=== PATIENT | male | born 1940 | race Caucasian/White ===

== ENCOUNTER 2022-07-18 01:04 | Inpatient (IN) ==
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
[2022-07-18 02:08] LABS: Albumin Level 3.9 gm/dl (3.4-5.0); BUN Creatinine Ratio 19.1 (10-20); Bilirubin Direct 0.2 mg/dl (0-0.2); Bilirubin,Total 0.9 mg/dl (0.2-1.0); Calcium 9.4 mg/dl (8.6-10.3); Creatinine Clr Calc Pharmacy 44.6 ml/min; Est GFR (African American) 48.8 ml/min; Est GFR (Non-African American) 42.1 ml/min; Hematocrit (blood only) 40.6 % (42.0-52.0); Hemoglobin 13.5 g/dl (14.0-18.0); Magnesium 1.5 mg/dl (1.7-2.4); Mean Corpuscular Hemoglobin 30.3 pg (25.0-34.0); Mean Corpuscular Hgb Conc 33.3 g/dL (32.0-36.0); Mean Corpuscular Volume 91.2 fL (80.0-100.0); Mean Platelet Volume 9.4 fL (9.4-12.4); Platelet Count 148 K/uL (130-400); Potassium 4.5 mmol/L (3.5-5.1); RDW Coefficient of Variation 13.3 % (11.5-14.5); RDW Standard Deviation 44.5 fL (36.4-46.3); Red Blood Count 4.45 M/uL (4.70-6.10); White Blood Count 3.44 K/ul (4.8-10.8)
[2022-07-18] MEDS ORDERED: ACETAMINOPHEN 500 MG TAB PO STA (02:09)
[2022-07-18] MEDS ORDERED: SODIUM CHLORIDE 0.9% 1000ML 1,000 ML IV ONE ×4 (02:48→19:31)
[2022-07-18] MEDS ORDERED: PIPERACILLIN/TAZOBACTAM 4.5 GM/120 ML BAG IV ONE (02:48)
[2022-07-18 02:50] LABS: Basophils # (auto) 0.01 K/uL (0-0.2); Basophils % (auto) 0.3 %; Immature Granulocytes # (auto) 0.03 K/uL (0.01-0.20); Immature Granulocytes % (auto) 0.9 %; Lymphocytes # (auto) 0.56 K/uL (1.2-3.4); Lymphocytes % (auto) 16.3 %; Monocytes # (auto) 0.01 K/uL (0.11-0.59); Monocytes % (auto) 0.3 %; Neutrophils # (auto) 2.83 K/uL (1.40-6.50); Neutrophils % (auto) 82.2 %
[2022-07-18 02:53] LABS: Appearance Urine Cloudy (Clear); Bacteria Urine Automated 4+ (Negative); Bilirubin Urine Negative (Negative); Blood Urine 3+ (Negative); Color Urine Yellow; Epithelial Cell Urine Auto 0-5 /lpf (0-5); Glucose Urine UA Negative (Negative); Ketones Urine Negative (Negative); Leukocyte Esterase Urine 2+ (Negative); Nitrite Urine Positive (Negative); Protein Urine Negative (Negative); Specific Gravity Urine 1.013 (1.000-1.030); Urobilinogen Urine Negative (Negative); WBC Urine Automated >30 /hpf (0-5); pH Urine 5.5 (4.5-7.5)
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
[2022-07-18 03:50] LABS: Partial Thromboplastin Ratio 0.8; Partial Thromboplastin Time 21.9 Seconds (21.0-31.0)
[2022-07-18] MEDS ORDERED: LACTATED RINGER'S 1,000 ML IV ONE (04:30)
[2022-07-18] MEDS ORDERED: GLUCOSE 40% GEL 15 GM TUBE PO PRN (05:01)
[2022-07-18] MEDS ORDERED: GLUCOSE 10 TAB/TUBE PO PRN (05:01)
[2022-07-18] MEDS ORDERED: GLUCAGON FOR INJ 1 MG VIAL SQ PRN (05:01)
[2022-07-18] MEDS ORDERED: INSULIN ASPART PER UNIT CHARGE SC SCH (05:01)
[2022-07-18] MEDS ORDERED: traMADol HCL 50 MG TABLET PO PRN (05:01)
[2022-07-18] MEDS ORDERED: PROMETHAZINE HCL 12.5 MG in SODIUM CHLORIDE 0.9% 50 ML IV PRN (05:01)
[2022-07-18] MEDS ORDERED: DEXTROSE 50% 50 ML SYRINGE IV PRN (05:01)
[2022-07-18] MEDS ORDERED: CARBOHYDRATES FOR HYPOGLYCEMIA PO PRN (05:01)
[2022-07-18] MEDS: MAGNESIUM SULFATE / D5W 1 GM/100 ML BAG IV SCH ×3 (05:09→22:31)
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
--- NOTE | 2022-07-18 06:45 | CT Scan Report ---
Exam(s): CT ABDOMEN + PELVIS Without Contrast EXAM: CT Abdomen and Pelvis Without Intravenous Contrast CLINICAL HISTORY: Hematuria. TECHNIQUE: Axial computed tomography images of the abdomen and pelvis without intravenous contrast. CTDI is 21.66 mGy and DLP is 1269.14 mGy-cm. Automated exposure control was utilized for the study. A dose lowering technique was utilized adhering to the principles of ALARA. COMPARISON: CT abdomen and pelvis 06/12/2022 FINDINGS: Lung bases: Unremarkable. No mass. No consolidation. ABDOMEN: Liver: Unremarkable. Gallbladder and bile ducts: Unremarkable. No calcified stones. No ductal dilation. Pancreas: Calcifications of the pancreas are most consistent with chronic pancreatitis. No ductal dilation. Spleen: Unremarkable. No splenomegaly. Adrenals: Unremarkable. No mass. Kidneys and ureters: Unremarkable. No hydronephrosis or visualized nephrolithiasis. Stomach and bowel: Unremarkable. No obstruction. No mucosal thickening. PELVIS: Appendix: Normal appendix. Bladder: There is marked thickening of the wall of the urinary bladder with inflammatory stranding surrounding. A Head catheter is in good position. No stones. Reproductive: Unremarkable as visualized. ABDOMEN and PELVIS: Intraperitoneal space: Unremarkable. No free air. No significant fluid collection. Bones/joints: There are degenerative changes of the spine. No fracture. There is internal fixation of the right femur. No dislocation. Soft tissues: Small right and moderate left fat-containing inguinal hernias. There is a moderate umbilical fat-containing hernia. Vasculature: Minimal atherosclerosis. No abdominal aortic aneurysm. Lymph nodes: Unremarkable. No enlarged lymph nodes. IMPRESSION: 1. There is marked thickening of the wall of the urinary bladder with inflammatory stranding surrounding. This is concerning for cystitis. 2. No hydronephrosis or visualized nephrolithiasis. 3. Calcifications of the pancreas are most consistent with chronic pancreatitis. Electronically signed by: Gail Simpson MD 07/18/22 06:44 AM
--- NOTE | 2022-07-18 07:20 | XRay Report ---
SINGLE VIEW CHEST CLINICAL HISTORY: Sepsis. FINDINGS: An AP, portable, upright chest radiograph is obtained. No prior studies are available for c omparison at the time of dictation. The heart is enlarged noting atherosclerotic calcification of the thoracic aorta. The pulmonary vasculature is noncongested. There is bibasilar scarring/atelectasis. No airspace consolidation or large pleural effusion is identified. No pneumothorax is seen. The skele kody structures are osteopenic. The bony thorax is grossly intact. IMPRESSION: Moderate cardiomegaly with no active disease in the chest. ACT 112: Negative or not required by law. Electronically signed by: Natalio Mcnamara M.D. 07/18/2022 7:18 AM
[2022-07-18 07:36] LABS: Estimated Average Glucose 166 mg/dl; Hemoglobin A1C 7.4 % (4.5-5.6)
[2022-07-18] MEDS: CEFEPIME 2,000 MG in SYRINGE 0 ML IV SCH ×2 (07:53→20:07)
--- NOTE | 2022-07-18 07:58 | Urology Progress Note ---
I have discussed Mr. Dodd's case with CONNIE Thomas and agree with the above documentation. Urinalysis suspicious for infection with final blood cultures pending. Suspicion for sepsis from urologic source. He is also having new oxygen requirement undergoing work-up for PE. Agree with continuing antibiotics and narrowing coverage as culture data becomes available. Apprec iate hospitalist and ICU care. Urology will follow along. -Miguel Mcduffie MD. Date of Service July 18, 2022 Assessment & Plan (1) Acute UTI (urinary tract infection): (2) Urinary retention: (3) Urothelial carcinoma of bladder: Plan 81yo/M with a hx of bladder cancer who recently underwent TURBT on 07/08/[address] Mcduffie admitted with sepsis/UTI. -CT abd/pelvis noted cystitis, no hydronephrosis, and chronic pancreatitis. -Afebrile, hypotensive, not tachycardic. -Labs reviewed -White count 3.44, creatinine 1.52, hemoglobin 11.1. Continue to trend. -Urine and blood cultures are pending. On IV cefepime. -Follow cultures and tailor as culture data becomes available. -Maintain Head catheter. -Continue supportive care, antibiotic therapy, and management per primary team. -Urology will follow. Admission and Anticipated Discharge Date Admission Date: July 18, 2022 Subjective Patient examined at bedside. Awake, resting in bed on arrival. Reported feeling a little shaky. Nursing at bedside to check BP/BS. States he feels better than he did when he came in. Head catheter intact, draining clear yellow urine. Denies any pain or discomfort at present. No fevers. Denies nausea or vomiting. Pt to have CT chest today to r/o PE. Review of Systems Constitutional: as per Subjective / HPI Gastrointestinal: as per Subjective / HPI Genitourinary: + as per Subjective / HPI Physical Exam Constitutional: no acute distress Respiratory: no respiratory distress and no labored breathing Neurologic: moves all extremities and awake Psychiatric: Orientation: alert and oriented x 3 Genitourinary: Head catheter intact Results & Data Vital Signs (Past 12 Hours) Vital Signs Temp Pulse Pulse Resp BP BP BP 07/18/22 07:11 36.9 C 88 19 86/53 L 07/18/22 05:49 95 H 07/18/22 05:41 92/56 L 07/18/22 05:35 07/18/22 05:18 37.8 C H 94 H 18 78/46 L 07/18/22 05:01 36.9 C 93 H 24 91/56 L 07/18/22 04:15 99 H 28 H 96/56 L 07/18/22 04:04 101 H 23 86/49 L 07/18/22 03:30 108 H 20 93/61 L 07/18/22 03:13 109 H 32 H 112/65 07/18/22 02:39 07/18/22 02:38 109 H 28 H 110/51 L 07/18/22 02:00 107 H 31 H 07/18/22 01:13 37.5 C 107 H 20 130/72 07/18/22 01:11 106 H Pulse Ox O2 Del Method 07/18/22 07:11 93 Room Air 07/18/22 05:49 07/18/22 05:41 07/18/22 05:35 Room Air 07/18/22 05:18 96 Room Air 07/18/22 05:01 91 Room Air 07/18/22 04:15 93 Nasal Cannula 07/18/22 04:04 92 07/18/22 03:30 07/18/22 03:13 94 Room Air 07/18/22 02:39 94 Room Air 07/18/22 02:38 95 Room Air 07/18/22 02:00 07/18/22 01:13 93 Room Air 07/18/22 01:11 PG Care Time/CCT Total # of Minutes Spent Total Time Spent with Patient: Total time spent is greater than 50% in coordination of care (as documented) at patient's floor/unit and/or counseling patient: Coding Level of Care Code 49355 SUB INP/OBS CARE 2MIN Diagnoses Acute UTI (urinary tract infection) N39.0 Urinary retention R33.9 Urothelial carcinoma of bladder C67.9
[2022-07-18 08:05] LABS: Hematocrit (blood only) 34.9 % (42.0-52.0); Hemoglobin 11.3 g/dl (14.0-18.0)
[2022-07-18] MEDS: INSULIN ASPART PER UNIT CHARGE SC SCH ×4 (08:35→21:14)
[2022-07-18] MEDS: ACETAMINOPHEN 325 MG TAB PO PRN (09:43)
--- NOTE | 2022-07-18 10:17 | Electrocardiogram Report ---
Test Reason : Blood Pressure : / mmHG Vent. Rate : 104 BPM Atrial Rate : 104 BPM P-R Int : 166 ms QRS Dur : 082 ms QT Int : 304 ms P-R-T Axes : 023 045 044 degrees QTc Int : 399 ms Sinus tachycardia Otherwise normal ECG When compared with ECG of 27-APR-1997 10:08, Nonspecific T wave abnormality, worse in Inferior leads Nonspecific T wave abnormality now evident in Anterior leads Confirmed by Tree Meehan ([id number]) on 07/18/2022 10:17:11 AM Referred By: REFERRED SELF Confirmed By:Manav Meehan
[2022-07-18 11:52] LABS: A calco-baum cmplx NotReported Not Detected (NotDetected); Bact fragilis Not Reported Not Detected (NotDetected); C auris Not Reported Not Detected (NotDetected); CTX-M Resistant Gene Not Detected (NotDetected); Calbicans Not Reported Not Detected (NotDetected); Candida glabrata Not Reported Not Detected (NotDetected); Candida krusei Not Reported Not Detected (NotDetected); Cneoformans/gatti Not Reported Not Detected (NotDetected); Cparapsilosis Not Reported Not Detected (NotDetected); Ctropicalis Not Reported Not Detected (NotDetected); E cloacae compx Not Reported Not Detected (NotDetected); Efaecalis Not Reported Not Detected (NotDetected); Efaecium Not Reported Not Detected (NotDetected); Enterobacterales Not Reported DETECTED (NotDetected); Escherichia coli Not Reported Not Detected (NotDetected); H influenzae Not Reported Not Detected (NotDetected); IMP Resistant Gene Not Detected (NotDetected); K aerogenes Not Reported Not Detected (NotDetected); KPC Resistant Gene Not Detected (NotDetected); Koxytoca Not Reported Not Detected (NotDetected); Kpneumoniae grp Not Reported Not Detected (NotDetected); Lmonocyt Not Reported Not Detected (NotDetected); N meningitidis Not Reported Not Detected (NotDetected); NDM Resistant Gene Not Detected (NotDetected); OXA 48 Like Resistant Gene Not Detected (NotDetected); P aeruginosa Not Reported Not Detected (NotDetected); Proteus spp Not Reported Not Detected (NotDetected); Salmonella spp Not Reported Not Detected (NotDetected); Serratia marcescens DETECTED (NotDetected); Smarcescens Not Reported DETECTED (NotDetected); Staph lugdunensis Not Reported Not Detected (NotDetected); Staph spp. Not Reported Not Detected (NotDetected); Staphaureus Not Reported Not Detected (NotDetected); Staphepi Not Reported Not Detected (NotDetected); Stenmaltophilia Not Reported Not Detected (NotDetected); Strep agal(GrpB) Not Reported Not Detected (NotDetected); Strep pneum Not Reported Not Detected (NotDetected); Strep pyog (GrpA) Not Reported Not Detected (NotDetected); Strep spp Not Reported Not Detected (NotDetected); VIM Resistant Gene Not Detected (NotDetected)
[2022-07-18 11:58] LABS: Enterobacterales DETECTED (NotDetected)
--- NOTE | 2022-07-18 13:23 | Communication Note ---
Date of Service: July 18, 2022 Pt is an 81yo gentleman with a PMHx of bladder cancer s/p TURBT, DMII, HTN, HLD, CKD, HFpEF (EF 50%, TTE 2014 ), CAD status post stent (2014), PVD admitted with sepsis secondary to a UTI, currently hypotensive. States he had a urologic procedure done about a week and a half ago, and was sent home with a hardy. States the hardy was removed about 2 days before he started having fevers and chills. Seen this AM, states that his presenting chills have gotten better. Concerned about the "twisted" hardy present, states having pain. Otherwise denies any other acute concerns. Denies dizziness, blurry vision, chest pain, SOB. Vitals Reviewed: Persistently hypotensive, afebrile, not tachycardic General: Alert, oriented. No acute distress, laying in bed. Skin: No noted rashes or bruises Psych: Appropriate mood and affect Neuro: No gross deficits HEENT: NC/AT CV: RRR, Normal s1, s2. No murmurs appreciated Resp: Breath sounds clear bilaterally, no increased effort of breathing. No crackles/rhonchi/rales. Abdomen: Soft, nontender. No guarding. No organomegaly appreciated. : hardy in place Extremities: No edema in lower extremities bilaterally. Labs and imaging showed the following: UA suggestive of infection with urine culture pending . WBC not elevated. CT abd/pelvis noted cystitis and chronic pancreatitis. Blood Cultures pending- one currently growing gram negative bacilli. Serology PCR- positive for serratia and enterobacterales Chest XRAY with cardiomegaly, trops x2 with progressive elevation, third trop pending. Plan: Severe Sepsis secondary to UTI -pt s/p TURBT with recent hardy removal before presentation -Continue broad spectrum Cefepime for serratia and enterobacterales coverage -Follow urine culture and blood cultures for prospective narrowing -Appreciate urology recs -PRN tylenol and tramadol ordered for pain related to current hardy. Hypotension -Fluid Boluses as tolerated, monitor for signs of fluid overload. -Consider pressor support/ICU transfer if no improvement. Elevated troponin -suspected heart strain in setting of severe sepsis -chest xray with noted cardiomegaly -Echo done today noted right ventricular strain, EF>60%, cardiology read recommended evaluation for PE. -CT chest PE protocol ordered. - trend trops Hematuria/Anemia -trend H/H -hold home aspirin DMII -ISS while hospitalized -Hold home metformin HTN -hold home meds HLD -continue statin CKD -continue to monitor kidney function with daily BMP CAD -hold home aspirin Diet: DMII DVT prophylaxis: SCDs due to acute anemia Code Status: Full code Dispo: PCU/Tele currently.
[2022-07-18] MEDS ORDERED: SODIUM CHLORIDE 0.9% 1000ML 500 ML IV ONE ×2 (13:32→14:43)
[2022-07-18 14:36] LABS: Hematocrit (blood only) 33.8 % (42.0-52.0); Hemoglobin 11.1 g/dl (14.0-18.0)
[2022-07-18] MEDS ORDERED: NON-FORMULARY MEDICATION (Insulin Lispro 100 unit/mL solution) SQ SCH (16:28)
[2022-07-18] MEDS ORDERED: OPTIRAY 320 500ml IV ONE (17:41)
--- NOTE | 2022-07-18 18:10 | CT Scan Report ---
CT angio chest PE protocol CT DOSE: 712.95 mGy.cm HISTORY: 81 years-old Male with PE. Acute shortness of breath TECHNIQUE: Multiple CTA images of the chest were obtained after the intravenous administration of 114 ml Optiray. Coronal and sagittal MIPS were obtained from the axial data set and were submitted for review. All measurements were obtained according to NASCET criteria. A dose lowering technique was u tilized adhering to the principles of ALARA. COMPARISON: CT abdomen and pelvis of same day, chest radiograph the same day FINDINGS: CTA: Cardiomegaly without pericardial effusion. Extensive coronary artery calcifications. Unremarkable tho racic aorta. Suboptimal evaluation of the pulmonary arterial tree secondary to contrast bolus timing and respiratory motion artifact. No central pulmonary emboli are identified. CT CHEST: No thyroid nodule identified. No lymphadenopathy. There is no pneumothorax, pleural effusion or overt pulmonary edema. Mild bronchial wall thickening with subsegmental right lung predominant atelectasis . No suspicious pulmonary nodules or masses are identified. 5 mm fissural nodule of the right midlung on image 129 suggestive of a benign lymph node punctate hypodensities of the right lung base. Centra l airways are patent. No acute process of the imaged upper. Unremarkable soft tissues. There is no acute fracture identifie d. Degenerative changes of the shoulders and spine. IMPRESSION: 1. Limited exam as above. 2. Cardiomegaly without pulmonary emboli identified. ACT 112: Negative or not required by law. The above report was generated using voice recognition software. It may contain grammatical, syntax o r spelling errors. Electronically signed by: Brooks Giles M.D. 07/18/2022 6:08 PM
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
[2022-07-18] MEDS ORDERED: STAT IV Infusion **Titration per Protocol STA (19:54)
[2022-07-18] MEDS ORDERED: DOBUTamine / D5W 500 MG/250 ML BAG IV SCH (20:00)
[2022-07-18] MEDS: PRAVASTATIN SOD 40 MG TAB PO SCH (20:09)
[2022-07-18 20:54] LABS: BUN Creatinine Ratio 20.6 (10-20); Calcium 7.9 mg/dl (8.6-10.3); Creatinine Clr Calc Pharmacy 48.1 ml/min; Est GFR (African American) 53.4 ml/min; Est GFR (Non-African American) 46.1 ml/min; Magnesium 1.6 mg/dl (1.7-2.4); Potassium 5.1 mmol/L (3.5-5.1)
[2022-07-18] MEDS ORDERED: NON-FORMULARY MEDICATION (Insulin Glargine [Lantus Solostar U-100 Insulin] 100 unit/mL (3 SQ SCH (21:00)
[2022-07-18 21:02] LABS: Hematocrit (blood only) 31.9 % (42.0-52.0); Hemoglobin 10.2 g/dl (14.0-18.0); Mean Corpuscular Hemoglobin 29.7 pg (25.0-34.0); Mean Platelet Volume 9.7 fL (9.4-12.4); Platelet Count 106 K/uL (130-400); RDW Coefficient of Variation 13.5 % (11.5-14.5); RDW Standard Deviation 46.4 fL (36.4-46.3); Red Blood Count 3.43 M/uL (4.70-6.10); White Blood Count 20.84 K/ul (4.8-10.8)
[2022-07-18] MEDS: LANTUS PER UNIT CHARGE SQ SCH (21:12)
[2022-07-18 21:52] LABS: Basophils # (auto) 0.04 K/uL (0-0.2); Basophils % (auto) 0.2 %; Dohle Bodies 1+; Echinocytes 1+; Eosinophils # (auto) 0.47 K/uL (0-0.50); Eosinophils % (auto) 2.3 %; Immature Granulocytes # (auto) 0.85 K/uL (0.01-0.20); Immature Granulocytes % (auto) 4.1 %; Lymphocytes # (auto) 0.84 K/uL (1.2-3.4); Monocytes # (auto) 1.49 K/uL (0.11-0.59); Monocytes % (auto) 7.1 %; Neutrophils # (auto) 17.15 K/uL (1.40-6.50); Neutrophils % (auto) 82.3 %; Toxic Vacuolation 1+
[2022-07-19] MEDS: MAGNESIUM SULFATE / D5W 1 GM/100 ML BAG IV SCH ×2 (00:09→02:09)
[2022-07-19 06:10] LABS: Hematocrit (blood only) 34.3 % (42.0-52.0); Hemoglobin 11.4 g/dl (14.0-18.0); Mean Corpuscular Hemoglobin 29.8 pg (25.0-34.0); Mean Corpuscular Hgb Conc 33.2 g/dL (32.0-36.0); Mean Corpuscular Volume 89.6 fL (80.0-100.0); Mean Platelet Volume 9.7 fL (9.4-12.4); Platelet Count 107 K/uL (130-400); RDW Coefficient of Variation 13.8 % (11.5-14.5); RDW Standard Deviation 44.9 fL (36.4-46.3); Red Blood Count 3.83 M/uL (4.70-6.10); White Blood Count 16.12 K/ul (4.8-10.8)
[2022-07-19 06:18] LABS: Calcium 8.1 mg/dl (8.6-10.3); Magnesium 2.4 mg/dl (1.7-2.4); Potassium 4.7 mmol/L (3.5-5.1)
[2022-07-19 06:24] LABS: BUN Creatinine Ratio 19.8 (10-20); Creatinine Clr Calc Pharmacy 51.5 ml/min; Est GFR (African American) 58.4 ml/min; Est GFR (Non-African American) 50.3 ml/min; Phosphorus 2.5 mg/dl (2.5-4.9)
[2022-07-19 06:49] LABS: Basophils # (auto) 0.05 K/uL (0-0.2); Basophils % (auto) 0.3 %; Immature Granulocytes # (auto) 0.51 K/uL (0.01-0.20); Immature Granulocytes % (auto) 3.2 %; Lymphocytes # (auto) 0.98 K/uL (1.2-3.4); Lymphocytes % (auto) 6.1 %; Monocytes % (auto) 3.1 %; Neutrophils # (auto) 14.08 K/uL (1.40-6.50); Neutrophils % (auto) 87.3 %
[2022-07-19] MEDS: INSULIN ASPART PER UNIT CHARGE SC SCH ×4 (07:39→21:22)
[2022-07-19] MEDS: CEFEPIME 2,000 MG in SYRINGE 0 ML IV SCH ×2 (07:41→21:23)
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
--- NOTE | 2022-07-19 09:44 | Critical Care Progress Note ---
Date of Service July 19, 2022 Assessment & Plan (1) Sepsis: Plan: Reason Critically Ill: 81-year-old male with recent diagnosis of bladder carcinoma and status post TURBT presents to the ICU with severe sepsis and appears to have right-sided heart failure on TTE. Patient initially hypotensive and now improved with dobutamine drip. Blood cultures positive for gram- negative bacilli x2 sets with urinary source. Neuro - [facility] ICU: Negative Cardiac - Hypotensionresolved -Cardiology restarting carvedilol -Dobutamine weaned off this morning Respiratory - CTA negative for PE -Tolerating room air GI - Carb consistent diet RENAL/LYTES - Acute kidney injury on chronic kidney disease: Resolved - Bladder carcinomastatus post TURBT (07/08/22), pathology with papillary urothelial carcinoma -Head catheter management per urology -UTI management below ENDO - DM type IIcontinue Levemir/aspart. Holding metformin -ICU hyperglycemic protocol HEME - H&H stable ID - Gram-negative bacteremia, urinary source -Continue cefepime until sensitivities to allow de-escalation LINES/IV ACCESS - Peripheral IVs DVT PROPHYLAXIS - SCDs, holding anticoagulation due to hematuria -Patient is also ambulatory. If patient is no longer ambulatory would str ongly consider chemoprophylaxis Patient stable for downgrade out of ICU (2) Acute UTI (urinary tract infection): (3) Hypotension: (4) Right heart failure: (5) NSTEMI (non-ST elevated myocardial infarction): (6) Urothelial carcinoma of bladder: (7) Type 2 diabetes mellitus: (8) HTN (hypertension): Admission and Anticipated Discharge Date Admission Date: July 18, 2022 Results & Data Results & Data Vital Signs (Past 12 Hours) Vital Signs Temp Pulse Resp BP Pulse Ox O2 Del Method 07/19/22 08:00 87 24 117/52 L 93 Room Air 07/19/22 07:45 89 22 124/73 95 Room Air 07/19/22 07:30 94 H 26 H 119/61 94 Room Air 07/19/22 07:30 Room Air 07/19/22 07:15 96 H 25 H 111/64 93 Room Air 07/19/22 06:45 80 23 132/57 L 94 Room Air 07/19/22 07:15 36.7 C 07/19/22 06:30 79 26 H 93 07/19/22 06:30 126/62 04/21/23 06:15 82 27 H 91 07/19/22 06:15 140/70 07/19/22 06:00 93 H 32 H 94 07/19/22 06:00 129/76 07/19/22 05:31 91 H 27 H 92 07/19/22 05:31 109/70 07/19/22 05:30 97 H 25 H 92 07/19/22 05:15 79 24 94 07/19/22 05:15 131/65 07/19/22 05:00 80 25 H 94 07/19/22 04:46 80 29 H 96 07/19/22 04:30 85 26 H 94 07/19/22 04:30 125/61 07/19/22 04:15 82 24 92 07/19/22 04:15 125/60 07/19/22 04:00 92 H 18 92 07/19/22 04:00 126/64 07/19/22 03:46 81 25 H 93 07/19/22 03:31 81 26 H 96 07/19/22 03:30 81 24 96 07/19/22 03:15 120/55 L 07/19/22 03:15 82 46 H 93 07/19/22 03:00 86 26 H 94 07/19/22 03:00 127/53 L 07/19/22 02:45 84 39 H 93 07/19/22 02:45 113/55 L 07/19/22 02:30 85 27 H 95 07/19/22 02:30 125/59 L 07/19/22 02:15 123/57 L 07/19/22 02:15 86 26 H 94 07/19/22 02:00 85 27 H 93 07/19/22 01:46 85 26 H 95 07/19/22 01:46 115/57 L 07/19/22 01:30 84 27 H 94 07/19/22 01:30 121/60 07/19/22 01:15 86 25 H 97 07/19/22 01:15 115/59 L 07/19/22 01:01 88 31 H 94 07/19/22 01:01 133/77 07/19/22 01:00 89 27 H 95 07/19/22 00:46 90 24 94 07/19/22 00:46 129/62 07/19/22 00:30 90 26 H 93 07/19/22 00:30 135/74 07/19/22 00:15 97 H 27 H 89 L 07/19/22 00:15 119/64 07/19/22 00:00 84 21 93 07/19/22 00:00 123/57 L 07/18/22 23:45 86 29 H 93 07/18/22 23:45 119/75 07/18/22 22:46 37.1 C 07/18/22 22:30 81 25 H 95 07/18/22 22:30 114/57 L 07/18/22 22:15 84 24 96 07/18/22 22:15 115/71 07/18/22 22:00 82 24 95 07/18/22 22:00 106/49 L 07/18/22 21:45 85 24 95 07/18/22 21:45 103/52 L Coding Level of Care Code 05394 SUB INP/OBS CARE 04/24MIN Diagnoses Sepsis A41.9 Acute UTI (urinary tract infection) N39.0 Hypotension I95.9 Right heart failure I50.810 NSTEMI (non-ST elevated myocardial infarction) I21.4 Urothelial carcinoma of bladder C67.9 Type 2 diabetes mellitus E11.9 HTN (hypertension) I10
[2022-07-19] MEDS ORDERED: carvediloL 3.125 MG TAB PO ONE (10:01)
--- NOTE | 2022-07-19 10:47 | Urology Progress Note ---
Date of Service July 19, 2022 Assessment & Plan (1) Acute UTI (urinary tract infection): (2) Urinary retention: (3) Urothelial carcinoma of bladder: Plan 81yo/M with a hx of bladder cancer who recently underwent TURBT on 07/08/2022 admitted with sepsis likely from urologic source. He was transferred to the ICU yesterday due to an episode of hypoxia and hypotension, also found to have right-sided heart failure. Hypotension improved with dobutamine drip. He remains afebrile. Labs today show a leukocytosis of 16, hemoglobin 11.4, and creatinine 1.31. Urine and blood cultures are preliminary with gram-negative bacilli. He continues on IV cefepime. Continue to follow cultures and tailor as culture data becomes available. His Head catheter is intact and draining clear yellow urine. Recommend maintaining Head catheter for now. He can likely have a void trial prior to discharge or we can arrange in the urology clinic. Appreciate hospitalist and ICU care. Urology will follow along. Admission and Anticipated Discharge Date Admission Date: July 18, 2022 Subjective Patient examined at bedside this morning in the ICU. Awake, resting in bed on arrival. No acute distress. Transferred to the ICU yesterday due to an episode of hypoxia and hypotension. Found to have right-sided heart failure on TTE. Reports feeling much better this morning. Denies any pain or discomfort at present. Head catheter intact, draining clear yellow urine. No fevers. Review of Systems Constitutional: as per Subjective / HPI Cardiovascular: as per Subjective / HPI Genitourinary: + as per Subjective / HPI Physical Exam Constitutional: no acute distress Respiratory: no respiratory distress and no labored breathing Neurologic: awake Psychiatric: Orientation: alert and oriented x 3 Genitourinary: Head catheter intact Results & Data Vital Signs (Past 12 Hours) Vital Signs Temp Pulse Resp BP Pulse Ox O2 Del Method 07/19/22 10:00 79 24 114/67 96 Room Air 07/19/22 09:07 89 28 H 111/63 94 Room Air 07/19/22 08:46 91 H 24 107/59 L 95 Room Air 07/19/22 08:31 90 13 147/96 H 96 Room Air 07/19/22 08:15 87 28 H 131/78 95 Room Air 07/19/22 08:00 87 24 117/52 L 93 Room Air 07/19/22 07:45 89 22 124/73 95 Room Air 07/19/22 07:30 94 H 26 H 119/61 94 Room Air 07/19/22 07:30 Room Air 07/19/22 07:15 96 H 25 H 111/64 93 Room Air 07/19/22 06:45 80 23 132/57 L 94 Room Air 07/19/22 07:15 36.7 C 07/19/22 06:30 79 26 H 93 07/19/22 06:30 126/62 07/19/22 06:15 82 27 H 91 07/19/22 06:15 140/70 07/19/22 06:00 93 H 32 H 94 07/19/22 06:00 129/76 07/19/22 05:31 91 H 27 H 92 07/19/22 05:31 109/70 07/19/22 05:30 97 H 25 H 92 07/19/22 05:15 79 24 94 07/19/22 05:15 131/65 07/19/22 05:00 80 25 H 94 07/19/22 04:46 80 29 H 96 07/19/22 04:30 85 26 H 94 07/19/22 04:30 125/61 07/19/22 04:15 82 24 92 07/19/22 04:15 125/60 07/19/22 04:00 92 H 18 92 07/19/22 04:00 126/64 07/19/22 03:46 81 25 H 93 07/19/22 03:31 81 26 H 96 07/19/22 03:30 81 24 96 07/19/22 03:15 120/55 L 07/19/22 03:15 82 46 H 93 07/19/22 03:00 86 26 H 94 07/19/22 03:00 127/53 L 07/19/22 02:45 84 39 H 93 07/19/22 02:45 113/55 L 07/19/22 02:30 85 27 H 95 07/19/22 02:30 125/59 L 07/19/22 02:15 123/57 L 07/19/22 02:15 86 26 H 94 07/19/22 02:00 85 27 H 93 07/19/22 01:46 85 26 H 95 07/19/22 01:46 115/57 L 07/19/22 01:30 84 27 H 94 07/19/22 01:30 121/60 07/19/22 01:15 86 25 H 97 07/19/22 01:15 115/59 L 07/19/22 01:01 88 31 H 94 07/19/22 01:01 133/77 07/19/22 01:00 89 27 H 95 07/19/22 00:46 90 24 94 07/19/22 00:46 129/62 07/19/22 00:30 90 26 H 93 07/19/22 00:30 135/74 07/19/22 00:15 97 H 27 H 89 L 07/19/22 00:15 119/64 07/19/22 00:00 84 21 93 07/19/22 00:00 123/57 L 07/18/22 23:45 86 29 H 93 07/18/22 23:45 119/75 07/18/22 22:46 37.1 C PG Care Time/CCT Total # of Minutes Spent Total Time Spent with Patient: Total time spent is greater than 50% in coordination of care (as documented) at patient's floor/unit and/or counseling patient: Coding Level of Care Code 41774 SUB INP/OBS CARE 2/35MIN Diagnoses Acute UTI (urinary tract infection) N39.0 Urinary retention R33.9 Urothelial carcinoma of bladder C67.9
[2022-07-19] MEDS: carvediloL 3.125 MG TAB PO SCH (16:45)
--- NOTE | 2022-07-19 18:08 | Electrocardiogram Report ---
Test Reason : Blood Pressure : / mmHG Vent. Rate : 077 BPM Atrial Rate : 077 BPM P-R Int : 194 ms QRS Dur : 088 ms QT Int : 376 ms P-R-T Axes : 049 056 051 degrees QTc Int : 425 ms Normal sinus rhythm Normal ECG When compared with ECG of 18-JUL-2022 01:18, Nonspecific T wave abnormality no longer evident in Anterolateral leads Confirmed by Tree Meehan ([id number]) on 07/19/2022 6:08:24 PM Referred By: REFERRED SELF Confirmed By:Manav Meehan
--- NOTE | 2022-07-19 19:02 | Hospitalist Progress Note ---
Date of Service July 19, 2022 Assessment & Plan (1) Right heart failure: (2) Hypotension: (3) Sepsis: (4) Elevated troponin: (5) Urothelial carcinoma of bladder: (6) HTN (hypertension): (7) Chronic kidney disease, stage 3a: (8) Pure hypercholesterolemia: (9) Type 2 diabetes mellitus: Plan Severe Sepsis secondary to UTI, shock -downgraded from the ICU today, blood pressure currently maintaining after dobutamine support. -pt s/p TURBT with recent hardy removal before presentation -Continue broad spectrum Cefepime for serratia and enterobacterales coverage -Follow urine culture and blood cultures for prospective narrowing -Appreciate urology recs -PRN tylenol and tramadol ordered for pain related to current hardy. Hypotension -currently resolved after dobutamine pressor support - pt downgraded from the ICU, appreciate dental services director support. Elevated troponin -suspected heart strain in setting of severe sepsis -chest xray with noted cardiomegaly -Echo noted right ventricular strain, EF>60%, cardiology read recommended evaluation for PE. -CT chest PE protocol -no noted PE -trops peaked and downtrended -cardiology was consulted, recommended resuming home coreg but holding home lisinopril. Hematuria/Anemia -trend H/H, has been stable -hold home aspirin DMII -ISS while hospitalized -Hold home metformin HTN -hold home meds HLD -continue statin CKD -continue to monitor kidney function with daily BMP CAD -hold home aspirin Diet: DMII DVT prophylaxis: SCDs due to acute anemia Code Status: Full code Dispo: PCU/Tele currently. Admission and Anticipated Discharge Date Admission Date: July 18, 2022 Subjective Pt seen today while still in the ICU. States he feels better, does not have trouble breathing at this time. Has been off of pressor support the entire day with blood pressure maintained. Denies any acute concerns. Review of Systems Review of Systems: All systems reviewed & are unremarkable except as noted in Subjective Physical Exam Physical Exam: General: Alert, oriented. No acute distress Skin: No noted rashes or bruises Psych: Appropriate mood and affect Neuro: No gross deficits HEENT: NC/AT CV: RRR, Normal s1, s2. No murmurs appreciated Resp: Breath sounds clear bilaterally, no increased effort of breathing. Abdomen: Soft, nontender. No guarding. No organomegaly appreciated. Extremities: Trace edema in lower extremities bilaterally. Results & Data Results & Data Vital Signs (Past 12 Hours) Vital Signs Temp Pulse Resp BP Pulse Ox O2 Del Method 07/19/22 18:02 86 26 H 124/64 94 Room Air 07/19/22 17:00 92 H 26 H 123/59 L 95 Room Air 07/19/22 16:43 88 24 128/62 95 Room Air 07/19/22 16:00 76 20 123/68 94 Room Air 07/19/22 16:00 36.8 C 07/19/22 15:19 85 24 105/69 94 Room Air 07/19/22 15:14 76 26 H 95/45 L 94 Room Air 07/19/22 14:30 78 25 H 115/69 94 Room Air 07/19/22 13:00 78 25 H 107/56 L 95 07/19/22 12:24 83 21 121/66 98 Room Air 07/19/22 12:21 79 30 H 105/61 97 Room Air 07/19/22 12:00 82 31 H 127/72 98 Room Air 07/19/22 11:00 74 27 H 119/66 96 Room Air 07/19/22 12:03 36.6 C 07/19/22 10:00 79 24 114/67 96 Room Air 07/19/22 09:07 89 28 H 111/63 94 Room Air 07/19/22 08:46 91 H 24 107/59 L 95 Room Air 07/19/22 08:31 90 13 147/96 H 96 Room Air 07/19/22 08:15 87 28 H 131/78 95 Room Air 07/19/22 08:00 87 24 117/52 L 93 Room Air 07/19/22 07:45 89 22 124/73 95 Room Air 07/19/22 07:30 94 H 26 H 119/61 94 Room Air 07/19/22 07:30 Room Air 07/19/22 07:15 96 H 25 H 111/64 93 Room Air 07/19/22 07:15 36.7 C
[2022-07-19] MEDS: PRAVASTATIN SOD 40 MG TAB PO SCH (20:10)
[2022-07-19] MEDS: LANTUS PER UNIT CHARGE SQ SCH (21:22)
[2022-07-19 23:47] LABS: Base Excess ABG -1.7 mEq/L (-9-1.8); HCO3 ABG 23 mmol/L (19-24); Oxygen Saturation ABG 99.1 % (90-95); PCO2 ABG 38 mmHg (35-46); PO2 ABG 103 mmHg (80-95); pH ABG 7.39 (7.35-7.45)
[2022-07-19 23:49] LABS: Allen Test Pos (Pos)
[2022-07-19] MEDS ORDERED: ALBUT/IPRATROP 3MG/0.5MG NEB 3 ML VIAL NEB STA (23:57)
[2022-07-20] MEDS ORDERED: ALBUT/IPRATROP 3MG/0.5MG NEB 3 ML VIAL ONE (00:13)
[2022-07-20] MEDS ORDERED: ALBUMIN 25% 12.5 GM/50 ML VIAL IV ONE (00:30)
[2022-07-20] MEDS ORDERED: FUROSEMIDE INJ 20 MG/2 ML VIAL IV ONE (00:30)
[2022-07-20 06:48] LABS: BUN Creatinine Ratio 21.9 (10-20); Calcium 8.2 mg/dl (8.6-10.3); Creatinine Clr Calc Pharmacy 49.3 ml/min; Est GFR (African American) 55.3 ml/min; Est GFR (Non-African American) 47.7 ml/min; Magnesium 2.3 mg/dl (1.7-2.4); Phosphorus 2.3 mg/dl (2.5-4.9); Potassium 4.3 mmol/L (3.5-5.1)
[2022-07-20 06:52] LABS: Hematocrit (blood only) 33.7 % (42.0-52.0); Hemoglobin 11.4 g/dl (14.0-18.0); Mean Corpuscular Hemoglobin 30.2 pg (25.0-34.0); Mean Corpuscular Hgb Conc 33.8 g/dL (32.0-36.0); Mean Corpuscular Volume 89.4 fL (80.0-100.0); Platelet Count 114 K/uL (130-400); RDW Coefficient of Variation 13.7 % (11.5-14.5); Red Blood Count 3.77 M/uL (4.70-6.10); White Blood Count 14.34 K/ul (4.8-10.8)
[2022-07-20 07:16] LABS: Basophils # (auto) 0.03 K/uL (0-0.2); Basophils % (auto) 0.2 %; Dohle Bodies 2+; Eosinophils # (auto) 0.03 K/uL (0-0.50); Eosinophils % (auto) 0.2 %; Immature Granulocytes # (auto) 0.57 K/uL (0.01-0.20); Lymphocytes # (auto) 0.88 K/uL (1.2-3.4); Lymphocytes % (auto) 6.1 %; Monocytes # (auto) 0.69 K/uL (0.11-0.59); Monocytes % (auto) 4.8 %; Neutrophils # (auto) 12.14 K/uL (1.40-6.50); Neutrophils % (auto) 84.7 %
--- NOTE | 2022-07-20 07:34 | XRay Report ---
XR chest 1V portable HISTORY: 81 years-old Male low o2 acute hypoxia COMPARISON: CTA chest 07/18/2022 TECHNIQUE: AP view of the chest FINDINGS: Cardiac silhouette is enlarged. Blunting of the costophrenic angles with mild subsegmental bibasilar densities. Pulmonary vascular congestion. No pneumothorax or lobar airspace consolidation. Degenerati ve changes of the shoulders and spine. IMPRESSION: 1. Cardiomegaly with pulmonary vascular congestion. 2. Subsegmental bibasilar atelectasis with questioned trace pleural effusions. ACT 112: Negative or not required by law. The above report was generated using voice recognition software. It may contain grammatical, syntax o r spelling errors. Electronically signed by: Brooks Giles M.D. 07/20/2022 7:33 AM
[2022-07-20] MEDS: carvediloL 3.125 MG TAB PO SCH ×2 (08:17→16:35)
[2022-07-20] MEDS: DOCUSATE SODIUM 100 MG CAP PO SCH (08:17)
[2022-07-20] MEDS: INSULIN ASPART PER UNIT CHARGE SC SCH ×4 (08:17→20:17)
[2022-07-20] MEDS: CEFEPIME 2,000 MG in SYRINGE 0 ML IV SCH ×2 (09:02→20:16)
--- NOTE | 2022-07-20 09:37 | Urology Progress Note ---
Date of Service July 20, 2022 Assessment & Plan (1) Urothelial carcinoma of bladder: (2) Sepsis: (3) Acute UTI (urinary tract infection): Plan 81yo/M with a hx of bladder cancer who recently underwent TURBT on 07/08/2022 admitted with sepsis likely from urologic source. Subjectively reports feeling better today Head catheter draining clear urine. Can either attempt void trial prior to discharge or sent home with catheter and urology can schedule Head removal. Continue antibiotics. Recommend a total of 10 to 14 days of treatment. Not unreasonable to transition to oral antibiotic, suggest Bactrim Urology to follow peripherally Admission and Anticipated Discharge Date Admission Date: July 18, 2022 Subjective Afebrile with stable vitals. Leukocytosis downtrending from 16-14.3. Creatinine stable at 1.37. Urine culture finalized for Serratia marcescens and he is currently on cefepime. Blood cultures also positive for Serratia with repeat check pending. Patient reports subjectively feeling much better today. Head catheter continues to drain clear urine. Review of Systems Review of Systems: 14 point review of systems negative outside of what is listed above in HPI Physical Exam Physical Exam: General: Alert and oriented, no acute distress HEENT: Normocephalic, mucous membranes moist Pulmonary: Nonlabored respirations Abdomen: Nondistended : Head draining clear yellow urine Extremities: Moves all 4 spontaneously Neuro: No gross deficits Skin: Warm, dry, no rashes noted Results & Data Vital Signs (Past 12 Hours) Vital Signs Temp Pulse Pulse Pulse Resp BP BP 07/20/22 07:21 36.5 C 79 18 126/73 07/20/22 03:29 36.6 C 73 18 120/68 07/20/22 00:21 80 18 07/20/22 00:32 36.7 C 79 20 135/73 07/19/22 23:00 72 07/19/22 22:40 36.7 C 73 16 118/68 Pulse Ox O2 Del Method O2 Flow Rate 07/20/22 07:21 97 Nasal Cannula 2 07/20/22 03:29 95 Nasal Cannula 2 07/20/22 00:21 96 Nasal Cannula 2 07/20/22 00:32 99 Nasal Cannula 2 07/19/22 23:00 07/19/22 22:40 98 Nasal Cannula 2 PG Care Time/CCT Total # of Minutes Spent Total Time Spent with Patient: Total time spent is greater than 50% in coordination of care (as documented) at patient's floor/unit and/or counseling patient: Coding Level of Care Code 49590 SUB INP/OBS CARE 2/35MIN Diagnoses Urothelial carcinoma of bladder C67.9 Sepsis A41.9 Acute UTI (urinary tract infection) N39.0
--- NOTE | 2022-07-20 09:53 | Hospitalist Progress Note ---
Date of Service July 20, 2022 Assessment & Plan (1) Sepsis: Plan: Severe Sepsis secondary to UTI, shock pt s/p TURBT for bladder cancer with recent hardy removal before presentation On Cefepime for serratia and enterobacterales coverage -s/p hardy Was hypotensive and echo showed right sided heart failure required dobutamine pressor support and was in IVU Currently off of pressors and in tele close monitor Hypotension Resolved currently Elevated troponin Right heart failure NSTEMI mostly from severe sepsis chest xray with noted cardiomegaly ECHO showed right ventricular strain, EF>60%, cardiology read recommended evaluation for PE. CT chest PE protocol -no PE cardiology was consulted, recommended resuming home coreg but holding home lisinopril. close monitor Hematuria/Anemia hb 11.4 tooday holding home aspirin DMII ISS metformin on hold will monitor. HTN Holding home meds HLD on statin CKD cr 1.3 today will follow labs CAD Currently holding home aspirin Urothelial Bladder carcinoma follow up with Urology (2) Urothelial carcinoma of bladder: (3) Urinary retention: (4) Right heart failure: (5) NSTEMI (non-ST elevated myocardial infarction): (6) Type 2 diabetes mellitus: (7) Chronic kidney disease, stage 3a: Admission and Anticipated Discharge Date Admission Date: July 18, 2022 Subjective Resting comfortably breathing is better ate breakfast denies any chest pain no nausea no abdominal pain no hematuria Afebrile Review of Systems Review of Systems: As above Physical Exam Constitutional: WD/WN, vitals as above Eyes: EOMI Neck: trachea midline, no thyromegaly Respiratory: normal respiratory effort, lungs clear to auscultation Cardiovascular: RRR, no murmur, no edema Gastrointestinal (Abdomen): normal bowel sounds, soft, nontender, no hepatosplenomegaly Skin: no rashes, warm and dry Neurologic: EOMI No facial droop speech clear insight is ok moves extremities Results & Data Results & Data Vital Signs (Past 12 Hours) Vital Signs Temp Pulse Pulse Pulse Resp BP BP 07/20/22 07:21 36.5 C 79 18 126/73 07/20/22 03:29 36.6 C 73 18 120/68 07/20/22 00:21 80 18 07/20/22 00:32 36.7 C 79 20 135/73 07/19/22 23:00 72 07/19/22 22:40 36.7 C 73 16 118/68 Pulse Ox O2 Del Method O2 Flow Rate 07/20/22 07:21 97 Nasal Cannula 2 07/20/22 03:29 95 Nasal Cannula 2 07/20/22 00:21 96 Nasal Cannula 2 07/20/22 00:32 99 Nasal Cannula 2 07/19/22 23:00 07/19/22 22:40 98 Nasal Cannula 2
--- NOTE | 2022-07-20 13:49 | Cardiology Progress Note ---
Date of Service July 20, 2022 Assessment & Plan (1) NSTEMI (non-ST elevated myocardial infarction): (2) Sepsis: (3) Hypotension: (4) Coronary arteriosclerosis after percutaneous transluminal coronary angioplasty (PTCA): Plan Impression: 81-year-old male with underlying known chronic stable ischemic heart disease admitted with acute urosepsis. Patient has responded to IV antibiotics and fluid resuscitation. Troponins elevated secondary to acute illness and demand based ischemia. Echocardiogram demonstrates normal to hyperdynamic left ventricular systolic function. Moderate enlargement of the right ventricle and mild hypokinesis of the right ventricle also noted. No evidence of acute pulmonary embolus on CT scan. Small organized likely chronic anterolateral apical effusion of nonhemodynamic significance 07/20/2022 Slowly improving post sepsis. Did require single dose of IV furosemide for equilibration of large volume administrated now comfortable. Recommendations: Continue carvedilol at 3.125 mg twice per day Patient notes uses furosemide at home will obtain home dosing Likely resume lisinopril in a.m. Admission and Anticipated Discharge Date Admission Date: July 18, 2022 Subjective Patient seen and examined, chart, medications, telemetry reviewed. Notably more breathless last night after fluid resuscitation. Received IV furosemide x1 dose with prompt diuresis. Feels well this morning no chest pains or discomfort. No dizziness or lightheadedness. Physical Exam Constitutional: + obese; no acute distress Eyes: PERRL, conjunctivae normal, anicteric sclerae ENMT: external ear and nose normal, oropharynx normal Neck: trachea midline, no thyromegaly Respiratory: normal respiratory effort, lungs clear to auscultation Cardiovascular: RRR, no murmur, no edema Vessels: normal peripheral pulses; no JVD and no carotid bruit Gastrointestinal (Abdomen): normal bowel sounds, soft, nontender, no hepatosplenomegaly Results & Data Vital Signs (Past 12 Hours) Vital Signs Temp Pulse Resp BP Pulse Ox O2 Del Method O2 Flow Rate 07/20/22 11:03 36.7 C 70 19 119/71 100 Nasal Cannula 2 07/20/22 08:00 Nasal Cannula 2 07/20/22 07:21 36.5 C 79 18 126/73 97 Nasal Cannula 2 07/20/22 03:29 36.6 C 73 18 120/68 95 Nasal Cannula 2 Laboratory Results Laboratory Results - last 24 hr 0407/19/22 07/19/22 16:24 20:19 23:37 WBC RBC Hgb Hct MCV MCH MCHC RDW Std Deviation RDW Coeff of Ken Plt Count MPV Immature Gran % (Auto) Neut % (Auto) Lymph % (Auto) [place] % (Auto) Eos % (Auto) Baso % (Auto) Neut # (Auto) Lymph # (Auto) [place] # (Auto) Eos # (Auto) Baso # (Auto) Immature Gran # (Auto) Dohle Bodies ABG pH 7.39 ABG pCO2 38 ABG pO2 103 H ABG HCO3 23 ABG O2 Saturation 99.1 H ABG Base Excess -1.7 [place]o Test Pos Oxygen Given 2L Sodium Potassium Chloride Carbon Dioxide Anion Gap BUN Creatinine Est Cr Clr Drug Dosing Est GFR ( Amer) Est GFR (Non-Af Amer) BUN/Creatinine Ratio Glucose POC Glucose 148 H 208 H Calcium Phosphorus Magnesium 07/20/22 07/20/22 07/20/22 06:07 06:07 07:20 WBC 14.34 H RBC 3.77 L Hgb 11.4 L Hct 33.7 L MCV 89.4 MCH 30.2 MCHC 33.8 RDW Std Deviation 45.0 RDW Coeff of Ken 13.7 Plt Count 114 L MPV 10.0 Immature Gran % (Auto) 4.0 Neut % (Auto) 84.7 Lymph % (Auto) 6.1 [place] % (Auto) 4.8 Eos % (Auto) 0.2 Baso % (Auto) 0.2 Neut # (Auto) 12.14 H Lymph # (Auto) 0.[address] [place] # (Auto) 0.69 H Eos # (Auto) 0.03 Baso # (Auto) 0.03 Immature Gran # (Auto) 0.57 H Dohle Bodies 2+ ABG pH ABG pCO2 ABG pO2 ABG HCO3 ABG O2 Saturation ABG Base Excess Gallo Test Oxygen Given Sodium 134 L Potassium 4.3 Chloride 104 Carbon Dioxide 22 Anion Gap 8 BUN 30 H Creatinine 1.37 Est Cr Clr Drug Dosing 49.3 Est GFR ( Amer) 55.3 Est GFR (Non-Af Amer) 47.7 BUN/Creatinine Ratio 21.9 H Glucose 149 H POC Glucose 179 H Calcium 8.2 L Phosphorus 2.3 L Magnesium 2.3 07/20/22 11:29 WBC RBC Hgb Hct MCV MCH MCHC RDW Std Deviation RDW Coeff of Ken Plt Count MPV Immature Gran % (Auto) Neut % (Auto) Lymph % (Auto) [place] % (Auto) Eos % (Auto) Baso % (Auto) Neut # (Auto) Lymph # (Auto) [place] # (Auto) Eos # (Auto) Baso # (Auto) Immature Gran # (Auto) Dohle Bodies ABG pH ABG pCO2 ABG pO2 ABG HCO3 ABG O2 Saturation ABG Base Excess Gallo Test Oxygen Given Sodium Potassium Chloride Carbon Dioxide Anion Gap BUN Creatinine Est Cr Clr Drug Dosing Est GFR ( Amer) Est GFR (Non-Af Amer) BUN/Creatinine Ratio Glucose POC Glucose 230 H Calcium Phosphorus Magnesium
[2022-07-20] MEDS: LANTUS PER UNIT CHARGE SQ SCH (20:16)
[2022-07-20] MEDS: PRAVASTATIN SOD 40 MG TAB PO SCH (20:18)
[2022-07-21 06:34] LABS: Basophils # (auto) 0.04 K/uL (0-0.2); Basophils % (auto) 0.4 %; Eosinophils % (auto) 0.9 %; Hematocrit (blood only) 33.8 % (42.0-52.0); Hemoglobin 11.2 g/dl (14.0-18.0); Immature Granulocytes # (auto) 0.05 K/uL (0.01-0.20); Immature Granulocytes % (auto) 0.4 %; Lymphocytes # (auto) 1.26 K/uL (1.2-3.4); Lymphocytes % (auto) 11.1 %; Mean Corpuscular Hemoglobin 29.8 pg (25.0-34.0); Mean Corpuscular Hgb Conc 33.1 g/dL (32.0-36.0); Mean Corpuscular Volume 89.9 fL (80.0-100.0); Mean Platelet Volume 9.9 fL (9.4-12.4); Monocytes # (auto) 0.59 K/uL (0.11-0.59); Monocytes % (auto) 5.2 %; Neutrophils # (auto) 9.28 K/uL (1.40-6.50); Platelet Count 105 K/uL (130-400); RDW Coefficient of Variation 13.6 % (11.5-14.5); RDW Standard Deviation 45.1 fL (36.4-46.3); Red Blood Count 3.76 M/uL (4.70-6.10); White Blood Count 11.32 K/ul (4.8-10.8)
[2022-07-21 06:54] LABS: BUN Creatinine Ratio 23.9 (10-20); Calcium 8.4 mg/dl (8.6-10.3); Est GFR (African American) 54.8 ml/min; Est GFR (Non-African American) 47.3 ml/min; Phosphorus 2.4 mg/dl (2.5-4.9); Potassium 4.5 mmol/L (3.5-5.1)
[2022-07-21] MEDS: DOCUSATE SODIUM 100 MG CAP PO SCH (08:04)
[2022-07-21] MEDS: carvediloL 3.125 MG TAB PO SCH ×2 (08:04→16:52)
[2022-07-21] MEDS: INSULIN ASPART PER UNIT CHARGE SC SCH ×4 (08:07→21:07)
[2022-07-21] MEDS: CEFEPIME 2,000 MG in SYRINGE 0 ML IV SCH ×2 (08:07→21:06)
--- NOTE | 2022-07-21 10:35 | Hospitalist Progress Note ---
Date of Service July 21, 2022 Assessment & Plan (1) Sepsis: Plan: (1) Sepsis: Plan: Severe Sepsis secondary to UTI, shock pt s/p TURBT for bladder cancer on 07/08/22 was sent home on hardy seen in office on 07/15 s/p void trial and hardy taken out did ok until 07/17 when developed difficulty urinating and developed shaking chills and came to ER s/p hardy started on iv abx hypotensive even after fluids echo done showed right heart strain and was transferred to ICU and was on dobutamine drip. Currently off of pressors and on tele cultures growing Serratia Hardy draining ok hemodynamics stable Urology recommends 10-14 days of abx , possibly Bactrim Hypotension Resolved currently Elevated troponin Right heart failure NSTEMI mostly from severe sepsis, Troponin peaked to 694 chest xray with noted cardiomegaly ECHO showed right ventricular strain, EF>60%, Moderate enlargement of the right ventricle and mild hypokinesis of the right ventricle cardiology read recommended evaluation for PE. received a small dose of lasix. CT chest PE protocol -no PE cardiology was consulted, recommended resuming home coreg at lower dose but holding home lisinopril. to restart lisinopril as per cardiology- started on lisinopril 5mg daily today appreciate cardiology inputs Followup with cardiology on discharge. Hematuria/Anemia hb 11.2 today holding home aspirin resolved will resume aspirin DMII ISS metformin on hold will monitor. 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 follow up with Urology DVT px scds Disposition Will start pt/ot monitoring in hospital while adjusting meds possible d/c in couple of days. Admission and Anticipated Discharge Date Admission Date: July 18, 2022 Subjective says slept well ambulating with walker with help in the room denies chest pain or sob no nausea no abdominal pain hardy draining fine denies cough afebrile eating ok Review of Systems Review of Systems: As above Physical Exam Constitutional: WD/WN, vitals as above Neck: trachea midline, no thyromegaly Respiratory: normal respiratory effort, lungs clear to auscultation Cardiovascular: Rate/Rhythm: regular rate and regular rhythm Heart Sounds: normal S1 and normal S2 Extremities: + pedal edema Trace pedal edema present Gastrointestinal (Abdomen): normal bowel sounds, soft, nontender, no hepatosplenomegaly Skin: no rashes, warm and dry Neurologic: Alert and Oriented no facial droop speech clear obeys commands moves extremities Results & Data Results & Data Vital Signs (Past 12 Hours) Vital Signs Temp Pulse Pulse Pulse Resp BP Pulse Ox 07/21/22 07:17 36.6 C 78 18 126/74 93 07/21/22 03:00 36.7 C 77 16 116/67 95 07/20/22 23:00 67 07/20/22 22:44 36.7 C 71 16 108/69 94 O2 Del Method 07/21/22 07:17 Room Air 07/21/22 03:00 Room Air 07/20/22 23:00 07/20/22 22:44 Room Air
--- NOTE | 2022-07-21 11:20 | Cardiology Progress Note ---
Date of Service July 21, 2022 Assessment & Plan (1) NSTEMI (non-ST elevated myocardial infarction): (2) Sepsis: (3) Hypotension: (4) Coronary arteriosclerosis after percutaneous transluminal coronary angioplasty (PTCA): Plan Impression: 81-year-old male with underlying known chronic stable ischemic heart disease admitted with acute urosepsis. Patient has responded to IV antibiotics and fluid resuscitation. Troponins elevated secondary to acute illness and demand based ischemia. Echocardiogram demonstrates normal to hyperdynamic left ventricular systolic function. Moderate enlargement of the right ventricle and mild hypokinesis of the right ventricle also noted. No evidence of acute pulmonary embolus on CT scan. Small organized likely chronic anterolateral apical effusion of nonhemodynamic significance 07/21/2022 Patient continues to demonstrate clinical improvement. Spontaneous diuresis fluid resuscitation for sepsis Heart rate and blood pressure controlled no anginal symptoms Demand based ischemia without recurrent Continue beta-boo with carvedilol 3.125 mg twice per day (home dose) We will resume lower dose lisinopril at 5 mg/day today Patient the past has used diuretics at home but notes furosemide was discontinued 1 year ago and has not had requirements. Will follow closely Expected post hospital discharge close clinical follow-up with primary cattle inspector Dr Oakley Admission and Anticipated Discharge Date Admission Date: July 18, 2022 Subjective Patient seen and examined, chart, medications, telemetry reviewed. Patient slowly improving. White cell count decreasing. Spontaneous diuresis over the past 24 hours. No chest pains, shortness of breath, tachypalpitations. No arrhythmias on telemetry Physical Exam Constitutional: + obese; no acute distress Eyes: PERRL, conjunctivae normal, anicteric sclerae ENMT: external ear and nose normal, oropharynx normal Neck: trachea midline, no thyromegaly Respiratory: normal respiratory effort, lungs clear to auscultation Cardiovascular: RRR, no murmur, no edema Vessels: normal peripheral pulses; no JVD and no carotid bruit Gastrointestinal (Abdomen): normal bowel sounds, soft, nontender, no hepatosp lenomegaly Results & Data Vital Signs (Past 12 Hours) Vital Signs Temp Pulse Pulse Resp BP Pulse Ox O2 Del Method 07/21/22 07:17 36.6 C 78 18 126/74 93 Room Air 07/21/22 03:00 36.7 C 77 16 116/67 95 Room Air Laboratory Results Laboratory Results - last 24 hr 07/20/22 07/20/22 07/20/22 11:29 16:20 20:04 WBC RBC Hgb Hct MCV MCH MCHC RDW Std Deviation RDW Coeff of Ken Plt Count MPV Immature Gran % (Auto) Neut % (Auto) Lymph % (Auto) [place] % (Auto) Eos % (Auto) Baso % (Auto) Neut # (Auto) Lymph # (Auto) [place] # (Auto) Eos # (Auto) Baso # (Auto) Immature Gran # (Auto) Sodium Potassium Chloride Carbon Dioxide Anion Gap BUN Creatinine Est Cr Clr Drug Dosing Est GFR ( Amer) Est GFR (Non-Af Amer) BUN/Creatinine Ratio Glucose POC Glucose 230 H 166 H 180 H Calcium Phosphorus 07/21/22 07/21/22 07/21/22 05:50 05:50 11:14 WBC 11.32 H RBC 3.76 L Hgb 11.2 L Hct 33.8 L MCV 89.9 MCH 29.8 MCHC 33.1 RDW Std Deviation 45.1 RDW Coeff of Ken 13.6 Plt Count 105 L MPV 9.9 Immature Gran % (Auto) 0.4 Neut % (Auto) 82.0 Lymph % (Auto) 11.1 [place] % (Auto) 5.2 Eos % (Auto) 0.9 Baso % (Auto) 0.4 Neut # (Auto) 9.28 H Lymph # (Auto) 1.26 [place] # (Auto) 0.59 Eos # (Auto) 0.10 Baso # (Auto) 0.04 Immature Gran # (Auto) 0.05 Sodium 134 L Potassium 4.5 Chloride 104 Carbon Dioxide 24 Anion Gap 6 BUN 33 H Creatinine 1.38 Est Cr Clr Drug Dosing 49.0 Est GFR ( Amer) 54.8 Est GFR (Non-Af Amer) 47.3 BUN/Creatinine Ratio 23.9 H Glucose 152 H POC Glucose 226 H Calcium 8.4 L Phosphorus 2.4 L
[2022-07-21] MEDS ORDERED: ASPIRIN 81 MG ECTAB PO STA (11:55)
[2022-07-21] MEDS: lisinopril 5 MG TAB PO SCH (12:13)
[2022-07-21] MEDS: LANTUS PER UNIT CHARGE SQ SCH (21:07)
[2022-07-21] MEDS: PRAVASTATIN SOD 40 MG TAB PO SCH (21:08)
[2022-07-22] MEDS: ACETAMINOPHEN 325 MG TAB PO PRN (00:28)
[2022-07-22 06:47] LABS: Basophils # (auto) 0.03 K/uL (0-0.2); Basophils % (auto) 0.4 %; Eosinophils # (auto) 0.08 K/uL (0-0.50); Hematocrit (blood only) 33.8 % (42.0-52.0); Hemoglobin 11.1 g/dl (14.0-18.0); Immature Granulocytes % (auto) 1.2 %; Lymphocytes # (auto) 1.27 K/uL (1.2-3.4); Lymphocytes % (auto) 15.7 %; Mean Corpuscular Hemoglobin 29.5 pg (25.0-34.0); Mean Corpuscular Hgb Conc 32.8 g/dL (32.0-36.0); Mean Corpuscular Volume 89.9 fL (80.0-100.0); Monocytes % (auto) 7.4 %; Neutrophils # (auto) 6.01 K/uL (1.40-6.50); Neutrophils % (auto) 74.3 %; Platelet Count 110 K/uL (130-400); RDW Coefficient of Variation 13.6 % (11.5-14.5); RDW Standard Deviation 44.9 fL (36.4-46.3); Red Blood Count 3.76 M/uL (4.70-6.10); White Blood Count 8.09 K/ul (4.8-10.8)
[2022-07-22 07:03] LABS: BUN Creatinine Ratio 24.6 (10-20); Calcium 8.4 mg/dl (8.6-10.3); Creatinine Clr Calc Pharmacy 48.1 ml/min; Est GFR (African American) 54.8 ml/min; Est GFR (Non-African American) 47.3 ml/min; Potassium 4.4 mmol/L (3.5-5.1)
[2022-07-22] MEDS: INSULIN ASPART PER UNIT CHARGE SC SCH ×4 (08:12→20:19)
[2022-07-22] MEDS: CEFEPIME 2,000 MG in SYRINGE 0 ML IV SCH ×2 (08:12→20:20)
[2022-07-22] MEDS: carvediloL 3.125 MG TAB PO SCH ×2 (08:13→16:59)
[2022-07-22] MEDS: ASPIRIN 81 MG ECTAB PO SCH (08:13)
[2022-07-22] MEDS: lisinopril 5 MG TAB PO SCH (08:14)
[2022-07-22] MEDS: DOCUSATE SODIUM 100 MG CAP PO SCH (08:20)
--- NOTE | 2022-07-22 09:41 | Cardiology Progress Note ---
Date of Service July 22, 2022 Assessment & Plan (1) NSTEMI (non-ST elevated myocardial infarction): (2) Sepsis: (3) Hypotension: (4) Coronary arteriosclerosis after percutaneous transluminal coronary angioplasty (PTCA): Plan Impression: 81-year-old male with underlying known chronic stable ischemic heart disease admitted with acute urosepsis. Patient has responded to IV antibiotics and fluid resuscitation. Troponins elevated secondary to acute illness and demand based ischemia. Echocardiogram demonstrates normal to hyperdynamic left ventricular systolic function. Moderate enlargement of the right ventricle and mild hypokinesis of the right ventricle also noted. No evidence of acute pulmonary embolus on CT scan. Small organized likely chronic anterolateral apical effusion of nonhemodynamic significance 07/22/2022 Patient continues to demonstrate clinical improvement but complains of generalized weakness Spontaneous diuresis prior fluid resuscitation for sepsis. Appears Heart rate and blood pressure controlled no anginal symptoms Demand based ischemia without recurrent Continue beta-boo with carvedilol 3.125 mg twice per day (home dose) Continue reduced dose lisinopril at 5 mg/day Patient the past has used diuretics at home but notes furosemide was discontinued 1 year ago and has not had requirements. Will follow closely Expected post hospital discharge close clinical follow-up with primary chief design branch Dr Oakley Recommend PT OT possible rehab No further cardiac recommendations. We will sign off , contact with question Admission and Anticipated Discharge Date Admission Date: July 18, 2022 Subjective Patient seen and examined, chart, medications, telemetry reviewed. Overall feels weak but no acute cardiac complaints. Specifically denies chest pain shortness of breath dizziness lightheadedness or tachypalpitations. No arrhythmias on telemetry Blood pressure and heart rate well controlled on current medical therapies "Just feels weak when up and about" Review of Systems Review of Systems: All systems reviewed & are unremarkable except as noted in Subjective Physical Exam Constitutional: + obese; no acute distress Eyes: PERRL, conjunctivae normal, anicteric sclerae ENMT: external ear and nose normal, oropharynx normal Neck: trachea midline, no thyromegaly Respiratory: normal respiratory effort, lungs clear to auscultation Cardiovascular: RRR, no murmur, no edema Vessels: normal peripheral pulses; no JVD and no carotid bruit Gastrointestinal (Abdomen): normal bowel sounds, soft, nontender, no hepatosplenomegaly Results & Data Vital Signs (Past 12 Hours) Vital Signs Temp Pulse Pulse Pulse Resp BP Pulse Ox 07/22/22 07:39 36.8 C 76 20 126/74 93 07/22/22 03:00 36.8 C 70 15 116/61 95 07/21/22 23:00 78 07/21/22 23:30 111/66 07/21/22 22:31 36.6 C 69 16 95/58 L 94 O2 Del Method 07/22/22 07:39 Room Air 07/22/22 03:00 Room Air 07/21/22 23:00 07/21/22 23:30 07/21/22 22:31 Room Air Laboratory Results Laboratory Results - last 24 hr 07/21/22 07/21/22 07/21/22 07:19 11:14 16:17 WBC RBC Hgb Hct MCV MCH MCHC RDW Std Deviation RDW Coeff of Ken Plt Count MPV Immature Gran % (Auto) Neut % (Auto) Lymph % (Auto) [place] % (Auto) Eos % (Auto) Baso % (Auto) Neut # (Auto) Lymph # (Auto) [place] # (Auto) Eos # (Auto) Baso # (Auto) Immature Gran # (Auto) Sodium Potassium Chloride Carbon Dioxide Anion Gap BUN Creatinine Est Cr Clr Drug Dosing Est GFR ( Amer) Est GFR (Non-Af Amer) BUN/Creatinine Ratio Glucose POC Glucose 160 H 226 H 186 H Calcium 07/21/22 07/22/22 07/22/22 20:13 05:45 05:45 WBC 8.09 RBC 3.76 L Hgb 11.1 L Hct 33.8 L MCV 89.9 MCH 29.5 MCHC 32.8 RDW Std Deviation 44.9 RDW Coeff of Ken 13.6 Plt Count 110 L MPV 10.0 Immature Gran % (Auto) 1.2 Neut % (Auto) 74.3 Lymph % (Auto) 15.7 [place] % (Auto) 7.4 Eos % (Auto) 1.0 Baso % (Auto) 0.4 Neut # (Auto) 6.01 Lymph # (Auto) 1.27 [place] # (Auto) 0.60 H Eos # (Auto) 0.08 Baso # (Auto) 0.03 Immature Gran # (Auto) 0.10 Sodium 136 Potassium 4.4 Chloride 103 Carbon Dioxide 27 Anion Gap 6 BUN 34 H Creatinine 1.38 Est Cr Clr Drug Dosing 48.1 Est GFR ( Amer) 54.8 Est GFR (Non-Af Amer) 47.3 BUN/Creatinine Ratio 24.6 H Glucose 170 H POC Glucose 200 H Calcium 8.4 L
--- NOTE | 2022-07-22 11:31 | Hospitalist Progress Note ---
Date of Service July 22, 2022 Assessment & Plan (1) Sepsis: Plan: septic shock requiring vasopressors 2/2 UTI and Serratia bacteremia. Cleared with current IV antibiotics. Consulting ID for definitive recommendations given septic shock, bacteremia and complicated UTI. Remove hardy at this time. (2) Acute UTI (urinary tract infection): Plan: plan as above. (3) Bacteremia: Plan: plan as above (4) Right heart failure: Plan: Reduced RV function on echo without overt hypervolemia or edema today. He has done well without diuretics and cardiology noted that Lasix was stopped one year ago. No heart failure symptoms at this time or recently prior to surgery that were reported. Cont current medical therapy. (5) NSTEMI (non-ST elevated myocardial infarction): Plan: Demand ischemia in septic shock. No further cardiology workup recommended at this time. (6) Urothelial carcinoma of bladder: Plan: s/p TURBT, cont per Urology. (7) Coronary arteriosclerosis after percutaneous transluminal coronary angioplasty (PTCA): Plan: chronic, stable. Cont current medical therapy (8) Type 2 diabetes mellitus: Plan: Chronic, inpatient glucose is hyperglycemic. Increased glargine with first dose now. Novolog dose same. (9) HTN (hypertension): Plan: chronic, at goal. Cont current medical therapy. (10) Chronic kidney disease, stage 3a: Plan: chronic, At baseline. Avoid nephrotoxic substances as able. (11) Obesity: Plan: Lifestyle changes recommended DVT proph-start Lovenox now that hematuria has resolved. Full Code Dispo-uncertain at this time, pending PT/OT recommendations. Nikki Ochoa DO [facility] Hospitalist Admission and Anticipated Discharge Date Admission Date: July 18, 2022 Subjective 81 yo M admitted with urosepsis. Robi pain this morning No fever Would like his urinary catheter out if possible Eating well Feels better overall but still generally weak Worked with PT this morning He is open to rehab if recommended Review of Systems Review of Systems: All systems were reviewed and negative except as indicated on subjective above. Physical Exam Physical Exam: CONSTITUTIONAL: obese, vitals as above, generally well-appearing EYES: normal conjunctivae, no scleral icterus ENT: external ear and nose normal, MMM NECK: trachea midline RESPIRATORY: scant wheezing at the bases bilaterally, normal respiratory effort CARDIOVASCULAR: regular rate and rhythm, S1 and 2 heard without murmurs, gallops or rubs, no JVD, no peripheral edema CHEST: inspection of chest was normal GASTROINTESTINAL: , soft, nontender, ND, but protuberant, no guarding MUSCULOSKELETAL: generalized weakness without focality, head is normocephalic a nd atraumatic SKIN: warm and dry NEUROLOGIC: . CN 2-12 grossly intact, no sensory deficit, normal cognition, normal speech, no tremor PSYCHIATRIC: alert cooperative and oriented to person, place and time. Euthymic mood, makes good eye contact, language grossly intact, recent and remote memory grossly intact. Results & Data Results & Data Vital Signs (Past 12 Hours) Vital Signs Temp Pulse Pulse Resp BP BP Pulse Ox 07/22/22 11:00 36.7 C 72 18 100/56 L 96 07/22/22 07:39 36.8 C 76 20 126/74 93 07/22/22 03:00 36.8 C 70 15 116/61 95 07/21/22 23:30 111/66 O2 Del Method 07/22/22 11:00 Room Air 07/22/22 07:39 Room Air 07/22/22 03:00 Room Air 07/21/22 23:30 Laboratory Results Short CBC 07/22/22 Range/Units 05:45 WBC 8.09 (4.8-10.8) K/ul Hgb 11.1 L (14.0-18.0) g/dl Hct 33.8 L (42.0-52.0) % Plt Count 110 L (130-400) K/uL BMP 07/22/22 05:45 Sodium 136 Potassium 4.4 Chloride 103 Carbon Dioxide 27 BUN 34 H Creatinine 1.38 Glucose 170 H Calcium 8.4 L Medications Administered Current Inpatient Medications Acetaminophen (Acetaminophen 325 Mg Tab) 650 mg PO Q4H PRN PRN Reason: Pain or Fever Stop: 08/17/22 05:00 Last Admin: 07/22/22 00:28 Dose: 650 mg Aspirin (Aspirin 81 Mg Ectab) 81 mg PO QAM [facility] Stop: 08/21/22 08:59 Last Admin: 07/22/22 08:13 Dose: 81 mg Carvedilol (Carvedilol 3.125 Mg Tab) 3.125 mg PO BIDM [facility] Stop: 08/18/22 16:59 Last Admin: 07/22/22 08:13 Dose: 3.125 mg Dextrose (Dextrose 50% 50 Ml Syringe) 25 - 50 ml IV UD PRN; Protocol PRN Reason: Hypoglycemia Protocol Stop: 08/17/22 05:00 Docusate Sodium (Docusate Sodium 100 Mg Cap) 100 mg PO DAILY [facility] Stop: 08/19/22 08:59 Last Admin: 07/22/22 08:20 Dose: 100 mg Glucagon (Glucagon For Inj 1 Mg Vial) 1 mg SQ UD PRN; Protocol PRN Reason: Hypoglycemia Protocol Stop: 08/17/22 05:00 Glucose (Glucose 10 Tab/Tube) 4 - 8 tab PO UD PRN; Protocol PRN Reason: Hypoglycemia Treatment Stop: 08/17/22 05:00 Glucose (Glucose 40% Gel 15 Gm Tube) 15 - 30 gm PO UD PRN; Protocol PRN Reason: Hypoglycemia Protocol Stop: 08/17/22 05:00 Cefepime HCl 2,000 mg/ Syringe 20 mls @ 5 mls/min IV Q12H ARTURO; Protocol Stop: 07/28/22 07:59 Last Admin: 07/22/22 08:12 Dose: 5 mls/min Promethazine HCl 12.5 mg/ (Sodium Chloride) 50.5 mls @ 202 mls/hr IV Q6H PRN PRN Reason: Nausea And Vomiting Stop: 08/17/22 05:00 Insulin Aspart (Insulin Aspart Per Unit Charge) 0 units SC ACHS [facility] Stop: 08/17/22 07:29 Last Admin: 07/22/22 08:12 Dose: 4 units Insulin Glargine (Lantus Per Unit Charge) 15 units SQ BID [facility] Stop: 08/21/22 11:24 Lisinopril (Lisinopril 5 Mg Tab) 5 mg PO QAM [facility] Stop: 08/20/22 11:44 Last Admin: 07/22/22 08:14 Dose: 5 mg Miscellaneous (Carbohydrates For Hypoglycemia ) 15 - 30 gm PO UD PRN PRN Reason: Hypoglycemia Protocol Stop: 08/17/22 05:00 Pravastatin Sodium (Pravastatin Sod 40 Mg Tab) 80 mg PO HS [facility] Stop: 08/17/22 20:59 Last Admin: 07/21/22 21:08 Dose: 80 mg Tramadol HCl (Tramadol Hcl 50 Mg Tablet) 25 - 50 mg PO Q4H PRN PRN Reason: Pain Stop: 08/17/22 05:00 Last Admin: 07/18/22 11:46 Dose: 50 mg (4) Right heart failure Heart failure chronicity: unspecified Qualified Code(s): I50.810 - Right heart failure, unspecified
[2022-07-22] MEDS: LANTUS PER UNIT CHARGE SQ SCH ×2 (12:24→20:20)
[2022-07-22] MEDS: ENOXAPARIN INJ 40 MG/0.4 ML SYR SQ SCH (12:29)
[2022-07-22] MEDS: PRAVASTATIN SOD 40 MG TAB PO SCH (20:19)
[2022-07-23] MEDS: ASPIRIN 81 MG ECTAB PO SCH (07:32)
[2022-07-23] MEDS: lisinopril 5 MG TAB PO SCH (07:32)
[2022-07-23] MEDS: ENOXAPARIN INJ 40 MG/0.4 ML SYR SQ SCH (07:33)
[2022-07-23] MEDS ORDERED: POLYETHYLENE (MIRALAX) 17 GM PACK PO PRN (07:52)
--- NOTE | 2022-07-23 07:53 | Hospitalist Progress Note ---
Date of Service July 23, 2022 Assessment & Plan (1) Sepsis: Plan: septic shock requiring vasopressors 2/2 UTI and Serratia bacteremia. Cleared with IV antibiotics. Consulting ID for definitive recommendations given septic shock, bacteremia and complicated UTI. Removed hardy on 07/22. Transitioned to cipro 500mg PO BID per ID recommendations for total 14 day course of antibiotics. (2) Acute UTI (urinary tract infection): Plan: plan as above. (3) Bacteremia: Plan: plan as above (4) Right heart failure: Plan: Reduced RV function on echo without overt hypervolemia or edema today. He has done well without diuretics and cardiology noted that Lasix was stopped one year ago. No heart failure symptoms at this time or recently prior to surgery that were reported. Cont current medical therapy. (5) NSTEMI (non-ST elevated myocardial infarction): Plan: Demand ischemia in septic shock. No further cardiology workup recommended at this time. (6) Urothelial carcinoma of bladder: Plan: s/p TURBT, cont per Urology. (7) Coronary arteriosclerosis after percutaneous transluminal coronary angioplasty (PTCA): Plan: chronic, stable. Cont current medical therapy (8) Type 2 diabetes mellitus: Plan: Chronic, inpatient glucose is hyperglycemic. Increased glargine with first dose now. Novolog dose same. (9) HTN (hypertension): Plan: chronic, at goal. Cont current medical therapy. (10) Chronic kidney disease, stage 3a: Plan: chronic, At baseline. Avoid nephrotoxic substances as able. (11) Obesity: Plan: Lifestyle changes recommended, Miralax/suppository/colace for constipation. DVT proph-start Lovenox now that hematuria has resolved. Full Code Dispo-to rehab when bed available. Nikki Ochoa DO [facility] Hospitalist Admission and Anticipated Discharge Date Admission Date: July 18, 2022 Subjective 81 yo M admitted with urosepsis. Doing well today +constipation with last BM reported on 07/19 Eating well Feels better overall but still generally weak planned to go to rehab. Review of Systems Review of Systems: All systems were reviewed and negative except as indicated on subjective above. Physical Exam Physical Exam: CONSTITUTIONAL: obese, vitals as above, generally well-appearing EYES: normal conjunctivae, no scleral icterus ENT: external ear and nose normal, MMM NECK: trachea midline RESPIRATORY: scant wheezing at the bases bilaterally, normal respiratory effort CARDIOVASCULAR: regular rate and rhythm, S1 and 2 heard without murmurs, gallops or rubs, no JVD, no peripheral edema CHEST: inspection of chest was normal GASTROINTESTINAL: , soft, nontender, ND, but protuberant, no guarding MUSCULOSKELETAL: generalized weakness without focality, head is normocephalic and atraumatic SKIN: warm and dry NEUROLOGIC: . CN 2-12 grossly intact, no sensory deficit, normal cognition, normal speech, no tremor PSYCHIATRIC: alert cooperative and oriented to person, place and time. Euthymic mood, makes good eye contact, language grossly intact, recent and remote memory grossly intact. Results & Data Results & Data Vital Signs (Past 12 Hours) Vital Signs Temp Pulse Resp BP Pulse Ox O2 Del Method 07/23/22 07:14 36.8 C 72 18 122/75 97 Room Air 07/22/22 21:15 Room Air 07/22/22 21:17 36.5 C 67 18 111/66 95 Room Air 07/22/22 20:10 109/61 Medications Administered Current Inpatient Medications Acetaminophen (Acetaminophen 325 Mg Tab) 650 mg PO Q4H PRN PRN Reason: Pain or Fever Stop: 08/17/22 05:00 Last Admin: 07/22/22 00:28 Dose: 650 mg Aspirin (Aspirin 81 Mg Ectab) 81 mg PO QAM [facility] Stop: 08/21/22 08:59 Last Admin: 07/23/22 07:32 Dose: 81 mg Bisacodyl (Bisacodyl 10 Mg Supp) 10 mg MO NOW STA Stop: 07/23/22 17:56 Carvedilol (Carvedilol 3.125 Mg Tab) 3.125 mg PO BIDM [facility] Stop: 08/18/22 16:59 Last Admin: 07/23/22 17:50 Dose: 3.125 mg Ciprofloxacin (Ciprofloxacin 500 Mg Tab) 500 mg PO BID [facility] Stop: 08/02/22 08:59 Last Admin: 07/23/22 08:56 Dose: 500 mg Dextrose (Dextrose 50% 50 Ml Syringe) 25 - 50 ml IV UD PRN; Protocol PRN Reason: Hypoglycemia Protocol Stop: 08/17/22 05:00 Docusate Sodium (Docusate Sodium 100 Mg Cap) 100 mg PO DAILY [facility] Stop: 08/19/22 08:59 Last Admin: 07/23/22 08:43 Dose: 100 mg Enoxaparin Sodium (Enoxaparin Inj 40 Mg/0.4 Ml Syr) 40 mg SQ QAM [facility] Stop: 08/21/22 11:44 Last Admin: 07/23/22 07:33 Dose: 40 mg Glucagon (Glucagon For Inj 1 Mg Vial) 1 mg SQ UD PRN; Protocol PRN Reason: Hypoglycemia Protocol Stop: 08/17/22 05:00 Glucose (Glucose 10 Tab/Tube) 4 - 8 tab PO UD PRN; Protocol PRN Reason: Hypoglycemia Treatment Stop: 08/17/22 05:00 Glucose (Glucose 40% Gel 15 Gm Tube) 15 - 30 gm PO UD PRN; Protocol PRN Reason: Hypoglycemia Protocol Stop: 08/17/22 05:00 Promethazine HCl 12.5 mg/ (Sodium Chloride) 50.5 mls @ 202 mls/hr IV Q6H PRN PRN Reason: Nausea And Vomiting Stop: 08/17/22 05:00 Insulin Aspart (Insulin Aspart Per Unit Charge) 0 units SC ACHS [facility] Stop: 08/17/22 07:29 Last Admin: 07/23/22 17:51 Dose: 2 units Insulin Glargine (Lantus Per Unit Charge) 15 units SQ BID [facility] Stop: 08/21/22 11:24 Last Admin: 07/23/22 08:42 Dose: 15 units Lisinopril (Lisinopril 5 Mg Tab) 5 mg PO QAM [facility] Stop: 08/20/22 11:44 Last Admin: 07/23/22 07:32 Dose: 5 mg Miscellaneous (Carbohydrates For Hypoglycemia ) 15 - 30 gm PO UD PRN PRN Reason: Hypoglycemia Protocol Stop: 08/17/22 05:00 Polyethylene Glycol (Polyethylene (Miralax) 17 Gm Pack) 17 gm PO DAILY PRN PRN Reason: Constipation Stop: 08/22/22 07:51 Last Admin: 07/23/22 08:42 Dose: 17 gm Polyethylene Glycol (Polyethylene (Miralax) 17 Gm Pack) 17 gm PO BID [facility] Stop: 08/22/22 20:59 Pravastatin Sodium (Pravastatin Sod 40 Mg Tab) 80 mg PO HS [facility] Stop: 08/17/22 20:59 Last Admin: 07/22/22 20:19 Dose: 80 mg Tramadol HCl (Tramadol Hcl 50 Mg Tablet) 25 - 50 mg PO Q4H PRN PRN Reason: Pain Stop: 08/17/22 05:00 Last Admin: 07/18/22 11:46 Dose: 50 mg (4) Right heart failure Heart failure chronicity: unspecified Qualified Code(s): I50.810 - Right heart failure, unspecified
[2022-07-23] MEDS: LANTUS PER UNIT CHARGE SQ SCH ×2 (08:42→21:13)
[2022-07-23] MEDS: DOCUSATE SODIUM 100 MG CAP PO SCH (08:43)
[2022-07-23] MEDS: INSULIN ASPART PER UNIT CHARGE SC SCH ×4 (08:44→21:10)
[2022-07-23] MEDS: CIPROFLOXACIN 500 MG TAB PO SCH ×2 (08:56→21:13)
[2022-07-23] MEDS: carvediloL 3.125 MG TAB PO SCH ×2 (09:38→17:50)
[2022-07-23] MEDS ORDERED: bisacodyL 10 MG SUPP PR STA (17:55)
[2022-07-23] MEDS: POLYETHYLENE (MIRALAX) 17 GM PACK PO SCH (21:13)
[2022-07-23] MEDS: PRAVASTATIN SOD 40 MG TAB PO SCH (21:13)
[2022-07-24] MEDS: ASPIRIN 81 MG ECTAB PO SCH (09:09)
[2022-07-24] MEDS: carvediloL 3.125 MG TAB PO SCH (09:09)
[2022-07-24] MEDS: CIPROFLOXACIN 500 MG TAB PO SCH (09:10)
[2022-07-24] MEDS: lisinopril 5 MG TAB PO SCH (09:10)
[2022-07-24] MEDS: POLYETHYLENE (MIRALAX) 17 GM PACK PO SCH (09:10)
[2022-07-24] MEDS: ENOXAPARIN INJ 40 MG/0.4 ML SYR SQ SCH (09:11)
[2022-07-24] MEDS: INSULIN ASPART PER UNIT CHARGE SC SCH (09:16)
[2022-07-24] MEDS: DOCUSATE SODIUM 100 MG CAP PO SCH (09:17)
[2022-07-24] MEDS: LANTUS PER UNIT CHARGE SQ SCH (09:18)
--- NOTE | 2022-07-24 16:55 | Discharge Summary ---
Date of Service July 24, 2022 Admission HPI Per Admitting Provider History obtained from patient and records. Medical history significant for chronic diastolic heart failure (EF 50%, TTE 2014 ), CAD status post stent (2014), PVD, hypertension, hyperlipidemia, DM2 insulin requiring, history DVT status post Xarelto, bladder cancer status post recent TURBT, past tobacco abuse. Patient underwent outpatient TURBT of bladder tumor by [facility] urologist 10 days ago. 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 Hematuria at home. Head catheter removed and successful voiding trial on outpatient follow-up at urologist office 2 days ago. Patient noted shaking chills and rigors at home last night. Shortness of breath from shaking. Temperature of 104 noted at home. No chest pain. Painful hematuria symptoms described as dysuria. No flank pain. IV Zosyn administered at the ER. SBP currently 80s. 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 Admission Exam Per Admitting Provider GENERAL: Comfortable, obese, pleasant, slightly hard of hearing, no respiratory distress SKIN: Pallor, warm HEENT: Alopecia, pale palpebral conjunctivae, no ptosis, dry buccal mucosa NECK : Supple, short neck, no tenderness CHEST : CTA, no tenderness HEART : Tachycardic, no obvious murmurs ABDOMEN: Some distention, nontender EXTREMITIES : Minimal LE swelling, no LE tenderness, no other conspicuous deform ities noted NEUROLOGIC : Coherent, no facial asymmetry, mild hearing impairment, no other gross focality Principal Diagnosis Sepsis secondary to Serratia marcescens bacteremia Discharge Exam Constitutional: WD/WN, vitals as above, NAD, sitting up in bed, pleasant, conversing easily Respiratory: normal respiratory effort, lungs clear to auscultation, no wheeze, rales, rhonchi. Normal insp/exp effort, no accessory muscle use Cardiovascular: RRR, no murmur, no edema Vessels: no JVD or carotid bruit Chest: normal inspection of chest Abdomen: normal bowel sounds, soft, nontender, no hepatosplenomegaly Musculoskeletal: no cyanosis or clubbing, extremities motor strength 5/5 Skin: no rashes, warm and dry normal turgor Neurologic: PERRL, EOMI, accommodation nl, no face palsy, no dysarthria CN's II- XI intact bilaterally and moves all extremities Psychiatric: A+Ox3, euthymic affect Lymphatic: no cervical or axillary lymphadenopathy : deferred Discharge Data Allergies Allergy/AdvReac Type Severity Reaction Status Date / Time oxycodone AdvReac Unknown Verified 07/18/22 05:02 Consultations 07/18/22 03:29 ED Decision to Admit Stat 07/18/22 03:44 Consult Urology Routine 07/18/22 16:28 Consult Silviculturist Routine 07/18/22 19:56 Consult Cardiology Routine 07/22/22 11:31 Consult Infectious Diseases Routine Ordered Studies 07/18/22 03:37 CT Abd and Pelvis [CT abd pelvis wo con] Stat 07/18/22 15:58 CT angio chest PE protocol Stat Hospital Course (1) Sepsis: (2) Acute UTI (urinary tract infection): (3) Bacteremia: (4) Right heart failure: (5) NSTEMI (non-ST elevated myocardial infarction): (6) Urothelial carcinoma of bladder: (7) Coronary arteriosclerosis after percutaneous transluminal coronary angioplasty (PTCA): (8) Type 2 diabetes mellitus: (9) HTN (hypertension): (10) Chronic kidney disease, stage 3a: (11) Obesity: Plan Patient is a 81 years old with recent diagnosis of bladder cancer who underwent TURBT who presented to the hospital with severe sepsis. Patient was admitted to ICU for vasopressor requirement. Blood culture was positive for Serratia. He was treated with IV fluids, IV antibiotics during the hospitalization. Head was placed for drainage. Urology was consulted inpatient; recommended to continue antibiotic for 10 to 14 days. Over the course of the hospitalization, patient's hemodynamics improved. The repeat blood cultures were negative. He was transferred to general medical floor. Infectious disease was consulted; recommended ciprofloxacin for total of 14 days. Patient was discharged to rehab for 8 more days of antibiotic. Head was removed at discharge with successful trial of void. Cardiology was consulted during the hospitalization; recommended to continue Coreg at a lower dose as well as lisinopril at a lower dose. The changes were made during the discharge. PT OT evaluation was done; patient was accepted to go to rehab. Patient to follow-up with primary care doctor after discharge from rehab. Please note the above document was generated using voice recognition software. It may contain grammatical, syntax or spelling errors. Any formal questions or concerns about the content, text or information contained within the body of this dictation should be directly addressed to the provider for clarification Total Time Total Time Spent Total Time Spent (In Minutes): 40 Total Time Includes: Examination of the Patient, Discharge Planning, Medication Reconciliation, Communication With Other Providers and Other Discharge Plan Discharge Items Patient Disposition: Transfer [facility] Fac Reason For Visit: HYPOTENSION, SEPSIS Discharge Diagnosis: Sepsis secondary to Serratia Marcescens Activity: Resume your previous activity Non-emergency contact: Primary Care Provider Call non-emergency contact if: you have any medication questions Follow-up/Referrals: Belem Thomas CRNP [Primary Care Provider] - Diet: Heart Healthy Addtl Attending Provider Instructions: You were admitted to the hospital with bacteremia. You are prescribed ciprofloxacin 500 mg twice daily for 8 more days (till August 01, 2022). You were hypotensive during her hospitalization. For now, your dose of Coreg and lisinopril is decreased. Please continue PT OT. Please follow-up with primary care doctor after discharge. Follow-up with urology. Pending Studies at Discharge: No Stand-Alone Forms: My [facility] [employer] Skilled Items Patient informed of condition?: Yes DNR: No Discharge Level of Care: Skilled Communicable Disease: No Discharge Prognosis: Stable Lines: None Urinary Catheter: No Medications and DC Order Prescriptions: New polyethylene glycol 3350 [Miralax] 17 gram Powder In Packet 17 g PO DAILY PRN (Reason: constipation) 30 Days Qty: 30 0RF pravastatin 40 mg Tablet 80 mg PO HS 30 Days Qty: 60 0RF ciprofloxacin HCl 500 mg Tablet 500 mg PO BID 8 Days Qty: 16 0RF carvedilol 3.125 mg Tablet 3.125 mg PO BIDM 30 Days Qty: 60 0RF docusate sodium 100 mg Capsule 100 mg PO DAILY PRN (Reason: constipation) Qty: 30 0RF lisinopril [Zestril] 5 mg Tablet 5 mg PO QAM 30 Days Qty: 30 0RF Continued metformin 500 mg tablet 500 mg PO BID 30 Days Qty: 60 0RF insulin lispro 100 unit/mL solution 1 sliding scale dose subcut USEASDIRECTD Qty: 10 2RF insulin glargine [Lantus Solostar U-100 Insulin] 100 unit/mL (3 mL) Insulin Pen 20 unit SUBCUT HS Qty: 15 0RF aspirin 81 mg capsule 81 mg PO QAM 30 Days Qty: 30 0RF Discontinued lisinopril 10 mg tablet 10 mg PO QAM lisinopril 5 mg tablet 5 mg PO HS carvedilol 6.25 mg tablet 6.25 mg PO BID Rx Instructions: must administer with a meal/food pravastatin 80 mg Tablet 80 mg PO HS Discharge Orders: Discharge Order (Routine); Ordered 07/24/22 Ordered By: Pankaj Carroll/Other Patient Handouts: A1C, Managing Type 2 Diabetes Admission Data Admit Date/Time: 07/18/22 03:39 Attending Provider: Pankaj Augustine Admit Provider: Jesús Oquendo Primary Care Provider: Belem Thomas Other Providers: Jesús Oquendo ; Maximilian Diane ; Omar Figueroa ; Tree Farmer ; Jolly Roy ; Trell Fisher ; Leah Gaspar ; Ct Roper ; Miguel Mcduffie ; Arben Fuentes ; Kriss Crabtree ; Nick Granados ; Rafal Bates ; Ludwin Mac ; Sara Darling ; Oamr Hernandez ; Bryan Joe ; Freeman Chris ; Nick Karimi ; Fili Beckett ; Danny Zelaya ; Kyara White ; Seda Dempsey ; Sara Clarke ; Paulino Higginbotham ; Michelle Cantu ; Mitchel Soriano ; Tosha Vazquez ; [place] ; Dann Borges II ; Katy Garay ; Danny Marc ; Mukund Ferrer ; Leonardo Robin Other Interventions: Discharge Summary Assessment (RN) Last Done: 07/24/22 11:16
--- NOTE | 2022-07-27 07:20 | Coding Query ---
CODING QUERY To promote full compliance with coding requirements relating to patient care, provider participation is requested in all cases of braille coder uncertainty. Please assist us with the question(s) below: Coding Question(s): Pt admitted with Sepsis . Cardiology consulted d/t NSTEMI. Seeking to clarify the GA- . 07/19 Cardiology progress note(s) stated elevated troponin due to demand based ischemia. Please check below the phrase that applies to the NSTEMI . Thanks for your help. Florentin Flannery [facility] Physician's Response(s): X___ Pt was diagnosed/treated for Demand Ischemia Pt was diagnosed/treated for NSTEMI Type 2 Demand Ischemia Pt was diagnosed/treated for NSTEMI Other: Please document: Principal Diagnosis: "that condition established after study, to be chiefly responsible for occasioning the admission of the patient to the hospital for care." Co-Existing Principal Diagnosis: "when two or more diagnoses equally meet the criteria for principal diagnosis as determined by the circumstances of admission, diagnostic work up, and/or therapy provided, and the Alphabetic Index, Tabular List, or another coding guideline does not provide sequencing direction, any one of the diagnoses may be sequenced first." "When the physician has documented what appears to be a current diagnosis in the body of the record, but has not included the diagnosis in the final diagnostic statement, the physician should be asked whether the diagnosis should be added." (Source Coding [facility] 2 QTR90. p3-4) DAVIDD
== END 2022-07-24 11:17 | DRG 871 ==
LOC: ED 01:04 → SUATTDRO 03:39 → 2S 03:39 → 1E 16:37 → 2S 07-19 19:06 → 3N 07-22 21:13

== ENCOUNTER 2024-05-06 18:40 | Inpatient (IN) ==
[2024-05-06] MEDS: ALBUT/IPRATROP 3MG/0.5MG NEB 3 ML VIAL NEB STA (19:21)
[2024-05-06 19:31] LABS: Basophils # (auto) 0.02 K/uL (0.00-0.20); Basophils % (auto) 0.3 %; Eosinophils # (auto) 0.06 K/uL (0.00-0.50); Hematocrit (blood only) 43.6 % (42.0-52.0); Hemoglobin 14.2 g/dl (14.0-18.0); Immature Granulocytes # (auto) 0.01 K/uL (0.01-0.20); Immature Granulocytes % (auto) 0.2 %; Lymphocytes # (auto) 2.66 K/uL (1.20-3.40); Lymphocytes % (auto) 44.3 %; Mean Corpuscular Hemoglobin 29.3 pg (25.0-34.0); Mean Corpuscular Hgb Conc 32.6 g/dL (32.0-36.0); Mean Corpuscular Volume 90.1 fL (80.0-100.0); Mean Platelet Volume 10.1 fL (9.4-12.4); Monocytes # (auto) 0.74 K/uL (0.11-0.59); Monocytes % (auto) 12.3 %; Neutrophils # (auto) 2.52 K/uL (1.40-6.50); Neutrophils % (auto) 41.9 %; Platelet Count 141 K/uL (130-400); RDW Coefficient of Variation 14.3 % (11.5-14.5); RDW Standard Deviation 47.3 fL (36.4-46.3); Red Blood Count 4.84 M/uL (4.70-6.10); White Blood Count 6.01 K/ul (4.8-10.8)
[2024-05-06 19:35] LABS: HCO3 VBG 27 mmol/L; Oxygen Saturation VBG 79.7 %; PCO2 VBG 48 mmHg (38-50); PO2 VBG 51 mmHg; pH VBG 7.36 (7.36-7.41)
[2024-05-06 19:48] LABS: Anion Gap 7 (3-11); BUN Creatinine Ratio 22.1 (10-20); Blood Urea Nitrogen 40 mg/dl (6-23); Calcium 8.8 mg/dl (8.6-10.3); Carbon Dioxide 28 mmol/L (21-32); Chloride 101 mmol/L (98-107); Creatinine Clr Calc Pharmacy 36.7 ml/min; Glucose 171 mg/dl (70-99(Fasting)); Lipase 50 U/L (11-82); Sodium 136 mmol/L (136-145)
[2024-05-06 20:13] LABS: Influenza A virus by PCR Positive (Neg); Influenza B virus by PCR Negative (Neg); RSV by PCR Negative (Neg); SARS CoV2 RNA(COVID-19) Ceph NEGATIVE (Negative)
[2024-05-06] MEDS: OSELTAMIVIR PHOSPHATE 75 MG CAP PO STA (20:20)
--- NOTE | 2024-05-06 20:30 | XRay Report ---
EXAM: Radiograph of the Chest 1 View INDICATION: Chest pain. TECHNIQUE: Frontal view of the chest. COMPARISON: 07/19/2022 FINDINGS: Lungs and pleural spaces: Stable basilar scarring and hyperinflation. No consolidation or pulmonary edema. No pleural effusion or pneumothorax. Heart: Stable cardiomegaly. Mediastinum: Normal contour. Bones/joints: No fracture, erosion or dislocation. Soft tissues: No abnormality noted. No radiopaque foreign body noted. Upper abdomen: No abnormality noted. IMPRESSION: Stable chronic changes. No acute disease. ACT 112: Negative or not required by law. Electronically signed by Karli Vallejo 05-06-2024 7:50 PM
[2024-05-06 20:34] LABS: iSTAT Creatinine 1.7 mg/dl (0.6-1.3); iSTAT Hemoglobin 13.9 g/dl (14.0-18.0); iSTAT Ionized Calcium 1.13 mmol/l (1.12-1.32); iSTAT Potassium 5.2 mmol/L (3.3-5.0)
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
[2024-05-06] MEDS: DOXYCYCLINE HYCLATE 100 MG in DEXTROSE 5% MINI-B 100 ML IV STA (21:10)
[2024-05-06] MEDS: SODIUM CHLORIDE 0.9% 1,000 ML IV ONE (21:10)
[2024-05-06 21:22] LABS: Magnesium 1.8 mg/dl (1.7-2.4); Potassium 5.3 mmol/L (3.5-5.1)
[2024-05-06 21:33] LABS: Appearance Urine Clear (Clear); Bacteria Urine Automated None Seen (None Seen); Bilirubin Urine Negative (Negative); Blood Urine Negative (Negative); Cast Urine Automated 0-2 /lpf (0-2); Color Urine Yellow; Epithelial Cell Urine Auto 0-2 /hpf (0-2); Glucose Urine UA 1+ (Negative); Ketones Urine Trace (Negative); Leukocyte Esterase Urine Negative (Negative); Nitrite Urine Negative (Negative); Protein Urine Trace (Negative); RBC Urine Automated 0-2 /hpf (0-2); Specific Gravity Urine 1.022 (1.000-1.030); Urobilinogen Urine Negative (Negative); WBC Urine Automated 0-5 /hpf (0-5)
[2024-05-06] MEDS ORDERED: ACETAMINOPHEN 325 MG TAB PO PRN (21:53)
[2024-05-06] MEDS ORDERED: PROMETHAZINE 6.25 MG/50.25 ML BAG IV PRN (21:53)
[2024-05-06] MEDS ORDERED: traMADol HCL 50 MG TABLET PO PRN (21:53)
[2024-05-06] MEDS ORDERED: GLUCAGON FOR INJ 1 MG VIAL SQ PRN (21:59)
[2024-05-06] MEDS ORDERED: GLUCOSE 10 TAB/TUBE PO PRN (21:59)
[2024-05-06] MEDS ORDERED: GLUCOSE 40% GEL 15 GM TUBE PO PRN (21:59)
[2024-05-06] MEDS ORDERED: CARBOHYDRATES FOR HYPOGLYCEMIA PO PRN (21:59)
[2024-05-06] MEDS ORDERED: DEXTROSE 50% 50 ML SYRINGE IV PRN (21:59)
[2024-05-06] MEDS: MAGNESIUM SULFATE / D5W 1 GM/100 ML BAG IV ONE (22:39)
[2024-05-06] MEDS: INSULIN ASPART PER UNIT CHARGE SC SCH (22:39)
[2024-05-06] MEDS: carvediloL 3.125 MG TAB PO SCH (22:39)
[2024-05-06] MEDS: HEPARIN SOD 5,000 UNIT/0.5 ML VIAL SQ SCH (22:40)
[2024-05-06] MEDS: LANTUS PER UNIT CHARGE SC SCH (22:40)
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
[2024-05-07 06:33] LABS: Hemoglobin 13.4 g/dl (14.0-18.0); Immature Granulocytes # (auto) 0.02 K/uL (0.01-0.20); Immature Granulocytes % (auto) 0.7 %; Lymphocytes # (auto) 1.07 K/uL (1.20-3.40); Lymphocytes % (auto) 36.4 %; Mean Corpuscular Hemoglobin 28.4 pg (25.0-34.0); Mean Corpuscular Hgb Conc 32.7 g/dL (32.0-36.0); Mean Corpuscular Volume 86.9 fL (80.0-100.0); Mean Platelet Volume 9.8 fL (9.4-12.4); Monocytes % (auto) 3.4 %; Neutrophils # (auto) 1.75 K/uL (1.40-6.50); Neutrophils % (auto) 59.5 %; Platelet Count 129 K/uL (130-400); RDW Standard Deviation 45.1 fL (36.4-46.3); Red Blood Count 4.72 M/uL (4.70-6.10); White Blood Count 2.94 K/ul (4.8-10.8)
[2024-05-07 06:57] LABS: BUN Creatinine Ratio 24.4 (10-20); Calcium 8.9 mg/dl (8.6-10.3); Creatinine Clr Calc Pharmacy 50.1 ml/min
[2024-05-07 07:55] LABS: Estimated Average Glucose 169 mg/dl; Hemoglobin A1C 7.5 % (4.5-5.6)
--- NOTE | 2024-05-07 08:40 | Electrocardiogram Report ---
Test Reason : Blood Pressure : */* mmHG Vent. Rate : 70 BPM Atrial Rate : 70 BPM P-R Int : 188 ms QRS Dur : 76 ms QT Int : 380 ms P-R-T Axes : 48 49 60 degrees QTcB Int : 410 ms Normal sinus rhythm Normal ECG When compared with ECG of 19-Jul-2022 10:18, No significant change was found Confirmed by Contreras Lawrence ([id number]) on 05/07/2024 8:40:40 AM Referred By: REFERRED SELF Confirmed By: Contreras Lawrence
[2024-05-07] MEDS: FINASTERIDE 5 MG TAB PO SCH (08:53)
[2024-05-07] MEDS: PANTOprazole 40 MG TAB PO SCH (08:54)
[2024-05-07] MEDS: DOXYCYCLINE HYCLATE 100 MG CAP PO SCH (08:54)
[2024-05-07] MEDS: ADVANCED PROBIOTIC 625 MG CAPSULE PO SCH ×2 (08:55→09:00)
[2024-05-07] MEDS: guaiFENesin 600 MG TABCR PO SCH (08:59)
[2024-05-07] MEDS: OSELTAMIVIR PHOSPHATE SUSP 30 MG/5 ML UDP PO SCH (09:00)
[2024-05-07] MEDS: cefTRIAXone SODIUM 2,000 MG/50 ML BAG IV SCH (09:11)
[2024-05-07] MEDS: IPRATROPIUM BROMIDE NEB SOLN 0.02% 0.5MG/2.5ML VIAL NEB SCH (12:49)
[2024-05-07] MEDS: LEVALBUTEROL 1.25 MG/3 ML NEB NEB SCH ×2 (12:50→16:56)
[2024-05-07] MEDS: SODIUM CHLOR 7% 4 ML NEB NEB SCH (12:50)
--- NOTE | 2024-05-07 14:53 | Hospitalist Progress Note ---
Date of Service May 07, 2024 Assessment & Plan (1) Acute hypoxemic respiratory failure: Plan: Per admitting service notes with addendum: Acute hypoxic respiratory failure, secondary to acute bronchitis, influenza A infection History of smoking Chest x-ray: No pneumonia Seems to be improving overall, weaning off oxygen Add ceftriaxone to doxycycline for possible bacterial superinfection Continue Tamiflu Start nebs every 6 hours, hypertonic saline twice daily, Mucinex twice daily Incentive spirometry, flutter valve Follow-up sputum culture ARF secondary to illness Resolved chronic diastolic heart failure (EF 60-65%, TTE 2022), patient on the dry side hx CAD status post stent (2014)/PVD hypertension, stable hyperlipidemia, on statin Rx DM2 insulin requiring, reasonable control as of recent hemoglobin A1c of 7.4 from June 2022 history DVT status post Xarelto bladder cancer status post surgery/BPH, patient follows with [facility]ist past tobacco abuse. DVT prophylaxis. Heparin subcu Full code Disposition Lives at home Admission and Anticipated Discharge Date Admission Date: May 06, 2024 Subjective Follow-up for acute hypoxic respiratory failure, influenza infection, acute bronchitis, etc. Seen sitting up in bed, comfortable, not in distress On room air In good spirits States he feels improved compared to yesterday Breathing is improving, less cough, having difficulty expectorating phlegm No chest pain, palpitations, dizziness, fevers or chills, no other new symptom Review of Systems Review of Systems: all noted and negative except for above Physical Exam Physical Exam: General- oriented x 3, not in distress, speaks in sentences with no effort or accessory muscle use Eyes- anicteric Neck- no JVD Lungs- Positive for faint scattered bilateral wheezing, good air entry bilaterally No crackles Heart- normal rate, regular rhythm; no murmurs Abdomen- normal bowel sounds, nondistended, soft, nontender Extremities- no pretibial edema, no calf tenderness Neuro- alert, oriented x 3; no gross focal neurologic deficits Skin- warm & dry Results & Data Results & Data Vital Signs (Past 12 Hours) Vital Signs Temp Pulse Pulse Resp BP Pulse Ox O2 Del Method 05/07/24 12:50 77 18 95 Room Air 05/07/24 11:14 36.7 C 76 19 114/72 97 Nasal Cannula 05/07/24 07:49 36.4 C L 71 19 134/85 96 Nasal Cannula 05/07/24 07:41 Nasal Cannula 05/07/24 07:00 66 05/07/24 03:09 36.5 C 67 16 128/78 97 Nasal Cannula O2 Flow Rate 05/07/24 12:50 05/07/24 11:14 2 05/07/24 07:49 2 05/07/24 07:41 2 05/07/24 07:00 05/07/24 03:09 2 all noted and reviewed including below
[2024-05-07] MEDS: MELATONIN 3 MG TAB PO PRN (21:21)
[2024-05-07] MEDS: PRAVASTATIN SOD 40 MG TAB PO SCH (21:22)
[2024-05-08 09:43] LABS: BUN Creatinine Ratio 23.1 (10-20); Calcium 8.9 mg/dl (8.6-10.3); Creatinine Clr Calc Pharmacy 42.1 ml/min; Potassium 4.9 mmol/L (3.5-5.1)
[2024-05-08 09:45] LABS: Basophils # (auto) 0.01 K/uL (0.00-0.20); Basophils % (auto) 0.2 %; Eosinophils # (auto) 0.01 K/uL (0.00-0.50); Eosinophils % (auto) 0.2 %; Hematocrit (blood only) 40.9 % (42.0-52.0); Hemoglobin 13.3 g/dl (14.0-18.0); Immature Granulocytes # (auto) 0.01 K/uL (0.01-0.20); Immature Granulocytes % (auto) 0.2 %; Lymphocytes # (auto) 1.75 K/uL (1.20-3.40); Lymphocytes % (auto) 32.4 %; Mean Corpuscular Hemoglobin 28.6 pg (25.0-34.0); Mean Corpuscular Hgb Conc 32.5 g/dL (32.0-36.0); Mean Platelet Volume 9.6 fL (9.4-12.4); Monocytes # (auto) 0.39 K/uL (0.11-0.59); Monocytes % (auto) 7.2 %; Neutrophils # (auto) 3.23 K/uL (1.40-6.50); Neutrophils % (auto) 59.8 %; Platelet Count 130 K/uL (130-400); RDW Coefficient of Variation 14.2 % (11.5-14.5); RDW Standard Deviation 45.1 fL (36.4-46.3); Red Blood Count 4.65 M/uL (4.70-6.10)
--- NOTE | 2024-05-08 11:11 | XRay Report ---
XR chest 2V PA/lateral HISTORY: 83 years-old Male cough, r/o pneumonia acute cough and shortness of breath COMPARISON: 05/06/2024 TECHNIQUE: PA and lateral views of the chest FINDINGS: Cardiac silhouette is enlarged. Mild linear subsegmental bibasilar densities with hyperinflation/diap hragmatic flattening. No pneumothorax or overt pulmonary edema. Bones appear grossly intact. IMPRESSION: 1. Cardiomegaly without pulmonary edema. 2. Unchanged mild linear bibasilar atelectasis/scarring. ACT 112: Negative or not required by law. The above report was generated using voice recognition software. It may contain grammatical, syntax o r spelling errors. Electronically signed by: Brooks Giles M.D. 05/08/2024 11:09 AM
[2024-05-08 11:57] VITALS: BP 105/67; TEMP 97.9
[2024-05-08 12:42] VITALS: RESP 16; O2SAT 95
--- NOTE | 2024-05-08 13:09 | Discharge Summary ---
Discharge Summary Date of Service May 08, 2024 delayed entry date of service noted above Principal Dx & Hospital Course #1 = Principal Diagnosis (1) Acute hypoxemic respiratory failure: Per admitting service notes with addendum: Acute hypoxic respiratory failure, secondary to acute bronchitis, influenza A infection History of smoking Chest x-ray: No pneumonia Seems to be improving overall, weaning off oxygen Add ceftriaxone to doxycycline for possible bacterial superinfection Continue Tamiflu Start nebs every 6 hours, hypertonic saline twice daily, Mucinex twice daily Incentive spirometry, flutter valve Sputum culture: Negative 05/08 Patient clinically improved Weaned off oxygen Less cough, no shortness of breath Cleared for discharge Discharge plan: Tamiflu Doxycycline, cefuroxime Mucinex Levalbuterol inhaler Probiotics PCP follow-up in 1 week Acute renal failure Resolved chronic diastolic heart failure (EF 60-65%, TTE 2022) hx CAD status post stent (2014)/PVD hypertension, stable hyperlipidemia, on statin Rx DM2 insulin requiring, reasonable control as of recent hemoglobin A1c of 7.4 from June 2022 history DVT status post Xarelto bladder cancer status post surgery/BPH, patient follows with [facility] past tobacco abuse. Discharge to home PCP follow-up in 1 week Notes For Next Care Provider Medication Changes From Visit Tamiflu Doxycycline, cefuroxime Mucinex Levalbuterol inhaler Probiotics Admission HPI Per Admitting Provider History obtained from patient and records. Medical history significant for chronic diastolic heart failure (EF 60-65%, TTE 2022), CAD status post stent (2014), PVD, hypertension, hyperlipidemia, DM2 insulin requiring, history DVT status post Xarelto, bladder cancer status post recent TURBT, BPH, past tobacco abuse. Last confinement 2022 for S[place]atia septicemia secondary to complicated UTI. 1 week history of dry cough symptoms which progressed to cough productive of yellow sputum. Not sure about sick contacts. Denies aspiration. Chest pain from coughing. Worsening shortness of breath. Poor appetite. EMS called to patient's home today. O2 sats noted to be 80s. Tamiflu and neb treatment administered at the ER. 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 Admission Exam Per Admitting Provider GENERAL: Comfortable, obese, pleasant, slightly hard of hearing, no respiratory distress SKIN: Pallor, warm HEENT: Alopecia, pale palpebral conjunctivae, no ptosis, dry buccal mucosa, nasal cannula in place NECK : Supple, short neck, no tenderness CHEST : Decreased breath sounds, no tenderness HEART : RRR, no obvious murmurs ABDOMEN: Some distention, nontender EXTREMITIES : Minimal LE swelling, no LE tenderness, no other conspicuous deformities noted NEUROLOGIC : Coherent, no facial asymmetry, mild hearing impairment, no other gross focality Discharge Exam General- oriented x 3, not in distress, speaks in sentences with no effort or accessory muscle use Eyes- anicteric Neck- no JVD Lungs- clear breath sounds bilaterally, no rales/wheezes Heart- normal rate, regular rhythm; no murmurs Abdomen- normal bowel sounds, nondistended, soft, nontender Extremities- no pretibial edema, no calf tenderness Neuro- alert, oriented x 3; no gross focal neurologic deficits Skin- warm & dry Updated Medication List Medication Instructions Recorded Confirmed Type insulin glargine 100 unit/mL (3 20 unit (0.2 mL) subcut HS #15 mL 07/24/22 05/06/24 Rx mL) subcutaneous pen (Lantus Solostar U-100 Insulin) metformin 500 mg tablet 500 mg PO BID 30 days #60 tabs 07/24/22 05/06/24 Rx finasteride 5 mg tablet 5 mg PO DAILY #90 tabs 09/18/23 05/06/24 Rx Lactobacillus acidophilus See Rx Instructions .Route .COMPLEX 05/06/24 05/06/24 History carvedilol 3.125 mg tablet 3.125 mg PO 2XD 05/06/24 05/06/24 History insulin lispro 100 unit/mL See Rx Instructions .Route 05/06/24 05/06/24 History subcutaneous pen .COMPLEX Diabetes pantoprazole 40 mg tablet,delayed 40 mg PO 1XD 05/06/24 05/06/24 History release pravastatin 40 mg tablet 40 mg PO HS 05/06/24 05/06/24 History cefuroxime axetil 500 mg tablet 500 mg PO BID 5 days #10 tabs 05/08/24 Rx doxycycline hyclate 100 mg capsule 100 mg PO BID 5 days #10 caps 05/08/24 Rx guaifenesin 600 mg tablet, 600 mg PO Q12 7 days #14 tabs 05/08/24 Rx extended release 12 hr (Mucinex) levalbuterol tartrate 45 2 inh inhalation Q4H PRN shortness 05/08/24 Rx mcg/actuation aerosol inhaler of breath #15 grams oseltamivir 30 mg capsule (Tamiflu) 30 mg PO BID 3 days #6 caps 05/08/24 Rx Hospital Stay Data Consultations 05/06/24 20:27 ED Decision to Admit Stat Diagnostic Imagining Performed Laboratory Results WBC 5.40 K/ul (4.8-10.8) 05/08/24 09:02 RBC 4.65 M/uL (4.70-6.10) L 05/08/24 09:02 Hgb 13.3 g/dl (14.0-18.0) L 05/08/24 09:02 POC Hgb 13.9 g/dl (14.0-18.0) L 05/06/24 20:22 Hct 40.9 % (42.0-52.0) L 05/08/24 09:02 POC Hct 41 % (42-52) L 05/06/24 20:22 MCV 88.0 fL (80.0-100.0) 05/08/24 09:02 MCH 28.6 pg (25.0-34.0) 05/08/24 09:02 MCHC 32.5 g/dL (32.0-36.0) 05/08/24 09:02 RDW Std Deviation 45.1 fL (36.4-46.3) 05/08/24 09:02 RDW Coeff of Ken 14.2 % (11.5-14.5) 05/08/24 09:02 Plt Count 130 K/uL (130-400) 05/08/24 09:02 MPV 9.6 fL (9.4-12.4) 05/08/24 09:02 Immature Gran % (Auto) 0.2 % 05/08/24 09:02 Neut % (Auto) 59.8 % 05/08/24 09:02 Lymph % (Auto) 32.4 % 05/08/24 09:02 Haakon % (Auto) 7.2 % 05/08/24 09:02 Eos % (Auto) 0.2 % 05/08/24 09:02 Baso % (Auto) 0.2 % 05/08/24 09:02 Neut # (Auto) 3.23 K/uL (1.40-6.50) 05/08/24 09:02 Lymph # (Auto) 1.75 K/uL (1.20-3.40) 05/08/24 09:02 Haakon # (Auto) 0.39 K/uL (0.11-0.59) 05/08/24 09:02 Eos # (Auto) 0.01 K/uL (0.00-0.50) 05/08/24 09:02 Baso # (Auto) 0.01 K/uL (0.00-0.20) 05/08/24 09:02 Immature Gran # (Auto) 0.01 K/uL (0.01-0.20) 05/08/24 09:02 VBG pH 7.36 (7.36-7.41) 05/06/24 19:18 VBG pCO2 48 mmHg (38-50) 05/06/24 19:18 VBG pO2 51 mmHg 05/06/24 19:18 VBG HCO3 27 mmol/L 05/06/24 19:18 VBG O2 Saturation 79.7 % 05/06/24 19:18 VBG Base Excess 1.0 mEq/L 05/06/24 19:18 POC Sodium 136 mmol/L (135-144) 05/06/24 20:22 Sodium 135 mmol/L (136-145) L 05/08/24 09:02 POC Potassium 5.2 mmol/L (3.3-5.0) H 05/06/24 20:22 Potassium 4.9 mmol/L (3.5-5.1) 05/08/24 09:02 POC Chloride 102 mmol/L (101-112) 05/06/24 20:22 Chloride 101 mmol/L (98-107) 05/08/24 09:02 Carbon Dioxide 26 mmol/L (21-32) 05/08/24 09:02 POC Total CO2 26 mmol/L (24-31) 05/06/24 20:22 Anion Gap 8 (3-11) 05/08/24 09:02 POC Anion Gap 14.0 mmol/L (16-25) L 05/06/24 20:22 POC BUN 43 mg/dl (7-18) H 05/06/24 20:22 BUN 36 mg/dl (6-23) H 05/08/24 09:02 Creatinine 1.56 mg/dl (0.6-1.4) H 05/08/24 09:02 POC Creatinine 1.7 mg/dl (0.6-1.3) H 05/06/24 20:22 Est Cr Clr Drug Dosing 42.1 ml/min 05/08/24 09:02 eGFR 43.53 05/08/24 09:02 BUN/Creatinine Ratio 23.1 (10-20) H 05/08/24 09:02 Glucose 229 mg/dl (70-99(Fasting)) H 05/08/24 09:02 POC Glucose 249 mg/dl (70-99) H 05/08/24 11:24 POC Glucose (other) 238 mg/dl (70-99) H 05/06/24 20:22 Estimat Average Glucose 169 mg/dl 05/07/24 05:48 Hemoglobin A1c 7.5 % (4.5-5.6) H 05/07/24 05:48 Calcium 8.9 mg/dl (8.6-10.3) 05/08/24 09:02 POC Ioniz Calcium Roland 1.13 mmol/l (1.12-1.32) 05/06/24 20:22 Magnesium 1.8 mg/dl (1.7-2.4) 05/06/24 20:54 Troponin I High Sens 6.0 pg/ml (0-20) 05/06/24 18:55 Troponin I High Sens Cancelled 05/06/24 18:55 B-Natriuretic Peptide 16 pg/ml (0-100) 05/06/24 18:55 Lipase 50 U/L (11-82) 05/06/24 18:55 Urine Color Yellow 05/06/24 21:14 Urine Appearance Clear (Clear) 05/06/24 21:14 Urine pH 5.0 (4.5-7.5) 05/06/24 21:14 Ur Specific [place] 1.022 (1.000-1.030) 05/06/24 21:14 Urine Protein Trace (Negative) H 05/06/24 21:14 Urine Glucose (UA) 1+ (Negative) H 05/06/24 21:14 Urine Ketones Trace (Negative) H 05/06/24 21:14 Urine Blood Negative (Negative) 05/06/24 21:14 Urine Nitrite Negative (Negative) 05/06/24 21:14 Urine Bilirubin Negative (Negative) 05/06/24 21:14 Urine Urobilinogen Negative (Negative) 05/06/24 21:14 Ur Leukocyte Esterase Negative (Negative) 05/06/24 21:14 Urine WBC (Auto) 0-5 /hpf (0-5) 05/06/24 21:14 Urine RBC (Auto) 0-2 /hpf (0-2) 05/06/24 21:14 U Hyaline Cast (Auto) 0-2 /lpf (0-2) 05/06/24 21:14 U Epithel Cells (Auto) 0-2 /hpf (0-2) 05/06/24 21:14 Urine Bacteria (Auto) None Seen (None Seen) 05/06/24 21:14 SARS-CoV-2 (PCR) NEGATIVE (Negative) 05/06/24 19:18 Influenza Type A (PCR) Positive (Neg) A 05/06/24 19:18 Influenza Type B (PCR) Negative (Neg) 05/06/24 19:18 RSV (RT-PCR) Negative (Neg) 05/06/24 19:18 Impressions Chest X-Ray 05/08/24 08:00 XR chest 2V PA/lateral HISTORY: 83 years-old Male cough, r/o pneumonia acute cough and shortness of breath COMPARISON: 05/06/2024 TECHNIQUE: PA and lateral views of the chest FINDINGS: Cardiac silhouette is enlarged. Mild linear subsegmental bibasilar densities with hyperinflation/diaphragmatic flattening. No pneumothorax or overt pulmonary edema. Bones appear grossly intact. IMPRESSION: 1. Cardiomegaly without pulmonary edema. 2. Unchanged mild linear bibasilar atelectasis/scarring. ACT 112: Negative or not required by law. The above report was generated using voice recognition software. It may contain grammatical, syntax or spelling errors. Electronically signed by: Brooks Giles M.D. 05/08/2024 11:09 AM EXAM: Radiograph of the Chest 1 View INDICATION: Chest pain. TECHNIQUE: Frontal view of the chest. COMPARISON: 07/19/2022 FINDINGS: Lungs and pleural spaces: Stable basilar scarring and hyperinflation. No consolidation or pulmonary edema. No pleural effusion or pneumothorax. Heart: Stable cardiomegaly. Mediastinum: Normal contour. Bones/joints: No fracture, erosion or dislocation. Soft tissues: No abnormality noted. No radiopaque foreign body noted. Upper abdomen: No abnormality noted. IMPRESSION: Stable chronic changes. No acute disease. ACT 112: Negative or not required by law. Electronically signed by Karli Vallejo 05-06-2024 7:50 PM Pending Results Patient Have Any Pending Studies at Discharge: Yes Discharge Instructions Given to Patient (Per Discharging Provider) PLEASE REFER TO YOUR NEW MEDICATION LIST AND FOLLOW INSTRUCTIONS CAREFULLY. YOUR NEW MEDICATIONS INCLUDE: Tamiflu-antiviral medication for influenza Doxycycline, cefuroxime-antibiotic for possible bacterial superinfection Mucinex-for cough Levalbuterol inhaler-as needed for shortness of breath or wheezing Probiotics-for prevention of diarrhea secondary to antibiotics Please continue to use your incentive spirometry and flutter valve frequently at home. Continue taking probiotics daily for at least 1 month to prevent diarrhea from antibiotics. Please drink plenty of fluids. PLEASE CALL YOUR PRIMARY CARE PHYSICIAN OR RETURN TO THE ER IF WITH WORSENING OF SYMPTOMS, INCLUDING Shortness of breath, cough, fevers or chills, weakness, diarrhea, etc. FOLLOW UP WITH PRIMARY CARE PHYSICIAN OUTLINED ABOVE. Total Time Total Time Spent Total Time Spent (In Minutes): 35 minutes
[2024-05-08 13:25] VITALS: PULSE 62
== END 2024-05-08 14:51 | disposition home or self-care (01) | DRG 193 ==
LOC: ED 18:40 → 4W 20:59